=== PATIENT | male | born 1950 | race Hispanic/Latino ===

== ENCOUNTER → 2017-06-15 | Outpatient (CLI) | payer OTHER, MEDICARE ==
[~2017-06-15] MED LIST: METO25TA6 PO; RIVA20TA PO
== END | disposition home or self-care (01) ==
LOC: RAH 10:16
PROVIDERS: ATTEND Physical Medicine & Rehabilitation
DX: M54.12 Radiculopathy, cervical region (principal); M48.02 Spinal stenosis, cervical region
CPT/HCPCS: 72050

== ENCOUNTER → 2017-06-16 | Outpatient (CLI) | payer OTHER, MEDICARE | END | disposition home or self-care (01) | LOC: SHCH 09:54 | PROVIDERS: ATTEND Internal Medicine Cardiovascular Disease | DX: I35.1 Nonrheumatic aortic (valve) insufficiency (principal); I11.0 Hypertensive heart disease with heart failure; I50.9 Heart failure, unspecified; I25.10 Atherosclerotic heart disease of native coronary artery without angina pectoris; I48.0 Paroxysmal atrial fibrillation | CPT/HCPCS: 93306 ==

== ENCOUNTER → 2017-07-28 | Outpatient (CLI) | payer OTHER, MEDICARE | END | disposition home or self-care (01) | LOC: RAH 10:05 | PROVIDERS: ATTEND Physical Medicine & Rehabilitation | DX: M47.896 Other spondylosis, lumbar region (principal) | CPT/HCPCS: 72114 ==

== ENCOUNTER → 2017-09-07 | Outpatient (CLI) | payer MEDICARE, OTHER | END | disposition home or self-care (01) | LOC: RAH 07:54 | PROVIDERS: ATTEND Physical Medicine & Rehabilitation | DX: M50.221 Other cervical disc displacement at C4-C5 level (principal); M48.02 Spinal stenosis, cervical region | CPT/HCPCS: 72141 ==

== ENCOUNTER 2018-07-20 07:28 | Day surgery (SDC) | payer MEDICARE ==
[~2018-07-20] VITALS: Ht 170.2 cm; Wt 83.5 kg
[~2018-07-20 07:28] MED LIST changes: +SODIUM CHLORIDE 0.9% 1000ML 1,000 ML IV ONE
[2018-07-20 09:05] VITALS: BP 130/75
[2018-07-20] MEDS ORDERED: ERGO500014 PO (09:49)
[2018-07-20] MEDS ORDERED: RANI150C4 PO (09:49)
[2018-07-20] MEDS ORDERED: ASPI-555 PO (09:49)
[2018-07-20] MEDS ORDERED: LACT10SO PO (09:49)
[2018-07-20] MEDS ORDERED: TAMS-1 PO (09:49)
[2018-07-20] MEDS ORDERED: TYL3 PO (09:49)
[2018-07-20] MEDS ORDERED: ATOR40TA71 PO (09:49)
[2018-07-20] MEDS ORDERED: PROPOFOL 10 MG/ML 20ML VIAL IV ONE (09:49)
[2018-07-20] MEDS ORDERED: GABA-531 PO (09:49)
[2018-07-20 10:00] VITALS: BP 127/69
[2018-07-20 10:05] VITALS: BP 135/77
[2018-07-20 10:10] VITALS: BP 123/80
== END 2018-07-20 10:35 | disposition home or self-care (01) ==
LOC: ENDO 07:28 → DAH 07:28 → ENDO 10:35
PROVIDERS: ATTEND Internal Medicine
DX: K29.50 Unspecified chronic gastritis without bleeding (principal); K31.9 Disease of stomach and duodenum, unspecified; K74.60 Unspecified cirrhosis of liver; Z68.30 Body mass index [BMI] 30.0-30.9, adult; E78.5 Hyperlipidemia, unspecified; I10 Essential (primary) hypertension; Z86.73 Personal history of transient ischemic attack (TIA), and cerebral infarction without residual deficits; N40.0 Benign prostatic hyperplasia without lower urinary tract symptoms; I48.91 Unspecified atrial fibrillation; Z79.01 Long term (current) use of anticoagulants; Z79.899 Other long term (current) drug therapy
CPT/HCPCS: 43239; 88305; 88342; 93005; A4606; J2704; J7030

== ENCOUNTER 2018-09-29 07:15 | Day surgery (SDC) | payer MEDICARE ==
[~2018-09-29] VITALS: Ht 170.2 cm; Wt 85.7 kg
[~2018-09-29 07:15] MED LIST changes: +ASPI-555 PO; +ATOR40TA71 PO; +ERGO500014 PO; +GABA-531 PO; +LACT10SO PO; +RANI150C4 PO; +TAMS-1 PO; +TYL3 PO
[2018-09-29 08:28] VITALS: BP 166/80
[2018-09-29] MEDS ORDERED: PANT20TA PO (08:36)
[2018-09-29] MEDS ORDERED: DICL2100G TP (08:39)
[2018-09-29] MEDS ORDERED: GUAIFENESIN PO (08:39)
[2018-09-29] MEDS ORDERED: PROPOFOL 10 MG/ML 20ML VIAL IV ONE ×2 (09:07)
[2018-09-29 09:32] VITALS: BP 112/63
[2018-09-29 09:35] VITALS: BP 121/67
[2018-09-29 09:41] VITALS: BP 135/69
[2018-09-29 09:46] VITALS: BP 156/76
== END 2018-09-29 10:05 | disposition home or self-care (01) ==
LOC: ENDO 07:15 → DAH 07:15 → ENDO 10:05
PROVIDERS: ATTEND Internal Medicine Gastroenterology
DX: Z12.11 Encounter for screening for malignant neoplasm of colon (principal); D12.3 Benign neoplasm of transverse colon; K57.30 Diverticulosis of large intestine without perforation or abscess without bleeding; K63.5 Polyp of colon; I10 Essential (primary) hypertension; K29.70 Gastritis, unspecified, without bleeding; K21.9 Gastro-esophageal reflux disease without esophagitis; K74.60 Unspecified cirrhosis of liver; E78.2 Mixed hyperlipidemia; I48.2 Chronic atrial fibrillation; Z86.73 Personal history of transient ischemic attack (TIA), and cerebral infarction without residual deficits; Z79.01 Long term (current) use of anticoagulants; Z79.899 Other long term (current) drug therapy
CPT/HCPCS: 45380; 45385; 88305; 93005; A4606; J2704 ×2; J7030 ×2

== ENCOUNTER → 2018-10-07 | Outpatient (CLI) | payer MEDICARE ==
[~2018-10-07] MED LIST changes: +DICL2100G TP; +GUAIFENESIN PO; -LACT10SO PO; +PANT20TA PO; -SODIUM CHLORIDE 0.9% 1000ML 1,000 ML IV ONE
== END | disposition home or self-care (01) ==
LOC: SLP 20:12
PROVIDERS: ATTEND Internal Medicine Cardiovascular Disease
DX: G47.33 Obstructive sleep apnea (adult) (pediatric) (principal); I10 Essential (primary) hypertension
CPT/HCPCS: 95810

== ENCOUNTER → 2018-11-01 | Outpatient (CLI) | payer MEDICARE | END | disposition home or self-care (01) | LOC: SLP 19:54 | PROVIDERS: ATTEND Internal Medicine Cardiovascular Disease | DX: G47.33 Obstructive sleep apnea (adult) (pediatric) (principal); I10 Essential (primary) hypertension | CPT/HCPCS: 95811 ==

== ENCOUNTER 2019-04-02 17:15 | Emergency (ER) | payer MEDICARE ==
[2019-04-02 17:45] LABS: BASOPHILS % (AUTO) 0.6 % (0.0-5.0); EOSINOPHILS % (AUTO) 0.7 % (0.0-8.0); HEMATOCRIT 44.3 % (42-54); LYMPHOCYTES % (AUTO) 25.5 % (21.0-51.0); MEAN CORPUSCULAR HGB CONC 36.1 g/dL (32.0-36.0); MONOCYTES % (AUTO) 6.2 % (3.0-13.0); NEUTROPHILS % (AUTO) 66.5 % (40.0-77.0); PLATELET COUNT (AUTO) 174 K/uL (130-400); RED BLOOD CELL COUNT(AUTO) 5.34 MIL/uL (4.50-6.20); RED CELL DISTRIBUTION WIDTH 12.6 % (11.0-15.5); WHITE BLOOD COUNT (AUTO) 8.4 K/uL (4.8-10.8)
[2019-04-02 17:56] LABS: INR 0.97 (0.85-1.15); PARTIAL THROMBOPLASTIN TIME 27.2 SEC (26.3-35.5); PROTHROMBIN TIME 10.2 SEC (9.6-11.6)
[2019-04-02 17:59] LABS: CREATININE 0.8 mg/dL (0.5-1.5); POTASSIUM 4.1 mmol/L (3.5-5.1)
[2019-04-02 18:04] LABS: ALBUMIN 3.9 g/dL (3.5-5.0); BILIRUBIN,TOTAL 0.5 mg/dL (0.2-1.0); TOTAL PROTEIN, SERUM 7.5 g/dL (6.0-8.3)
[2019-04-02] MEDS ORDERED: HYDRALAZINE HCL 20 MG/ML VIAL ONE (19:02)
[2019-04-02] MEDS ORDERED: ORPHENADRINE CITRATE 30 MG/ML ML ONE (20:05)
[2019-04-02] MEDS ORDERED: KETOROLAC TROMETHAMINE 30MG/ML ONE (20:05)
== END 2019-04-02 20:27 | disposition home or self-care (01) ==
LOC: EDH 17:15
DX: S56.912A Strain of unspecified muscles, fascia and tendons at forearm level, left arm, initial encounter (principal); M54.2 Cervicalgia; R07.89 Other chest pain; I10 Essential (primary) hypertension; Z87.891 Personal history of nicotine dependence; V59.49XA Driver of pick-up truck or van injured in collision with other motor vehicles in traffic accident, initial encounter; Y93.89 Activity, other specified; Y92.89 Other specified places as the place of occurrence of the external cause; Y99.8 Other external cause status
CPT/HCPCS: 36415; 70450; 71250; 72125; 73090; 74176; 80053; 85025; 85610; 85730; 93005; 96372 ×2; 99285; J1885; J2360; J0360

== ENCOUNTER 2020-02-09 14:13 | Inpatient (IN) | payer MEDICARE ==
[~2020-02-09] VITALS: Ht 170.2 cm; Wt 75.0 kg
[~2020-02-09 14:13] MED LIST changes: -ASPI-555 PO; +ASPI-556 PO
[2020-02-09 15:01] LABS: ABG BASE EXCESS -1.7 mmol/L (-2.0-3.0); ABG HCO3 20.3 mmol/L (21.0-28.0); ABG OXYGEN SATURATION 84.1 % (95.0-99.0); ABG PCO2 28 mmHg (35-48)
[2020-02-09 15:08] LABS: BASOPHILS % (AUTO) 0.2 % (0.0-5.0); HEMATOCRIT 43.2 % (42-54); LYMPHOCYTES % (AUTO) 5.6 % (21.0-51.0); MEAN CORPUSCULAR HEMOGLOBIN 30.3 pg (27.0-33.0); MEAN CORPUSCULAR HGB CONC 36.3 g/dL (32.0-36.0); MEAN CORPUSCULAR VOLUME 83.4 fL (79-99); MONOCYTES % (AUTO) 3.8 % (3.0-13.0); PLATELET COUNT (AUTO) 194 K/uL (130-400); RED BLOOD CELL COUNT(AUTO) 5.18 MIL/uL (4.50-6.20); RED CELL DISTRIBUTION WIDTH 12.3 % (11.0-15.5); WHITE BLOOD COUNT (AUTO) 9.2 K/uL (4.8-10.8)
[2020-02-09 15:24] LABS: CARBON DIOXIDE 25 mmol/L (21-32); CHLORIDE 94 mmol/L (101-111); CREATININE 0.9 mg/dL (0.5-1.5); GLOMERULAR FILTR. RATE CALC 89 mL/min (>60); GLUCOSE,RANDOM 133 mg/dL (70-105); SODIUM SERUM 129 mmol/L (136-145); UREA NITROGEN, BLOOD 18 mg/dL (7-18)
[2020-02-09] MEDS ORDERED: ALBUTEROL INHALER 90MCG/INH IH ONE (15:24)
[2020-02-09] MEDS ORDERED: AZITHROMYCIN 500MG+NS 250ML 250 ML IV ONE (15:25)
[2020-02-09] MEDS ORDERED: DEXAMETHASONE SOD PHOSPHATE 10MG/ML 1ML VIAL ONE (15:25)
[2020-02-09] MEDS ORDERED: CEFTRIAXONE 1G VIAL ONE (15:26)
[2020-02-09] MEDS ORDERED: 0.9%NACL 50ML 50 ML IV ONE (15:29)
[2020-02-09 15:34] LABS: ALANINE AMINOTRANSFERASE 45 U/L (12-78); ASPARTATE AMINOTRANSFERASE 80 U/L (10-37); BILIRUBIN,TOTAL 1.7 mg/dL (0.2-1.0); CREATINE KINASE, TOTAL 145 U/L (21-232); LACTATE DEHYDROGENASE 675 U/L (81-234); MYOGLOBIN 155 ng/mL (10-92); TOTAL PROTEIN, SERUM 7.8 g/dL (6.0-8.3); TROPONIN I < 0.04 ng/mL (0.00-0.06)
[2020-02-09 15:55] LABS: INR 1.03 (0.85-1.15); PARTIAL THROMBOPLASTIN TIME 34.8 SEC (26.3-35.5); PROTHROMBIN TIME 11.1 SEC (9.6-11.6)
[2020-02-09 16:13] LABS: ERYTHROCYTE SEDIMENTATION RATE 51 MM/HR (0-20)
[2020-02-09] MEDS ORDERED: ONDANSETRON 4MG INJ IVP PRN (17:30)
[2020-02-09] MEDS ORDERED: TEMAZEPAM 15 MG CAPSULE PO PRN (17:30)
[2020-02-09] MEDS ORDERED: ALBUTEROL 0.083% 2.5 MG/3 ML INH IH PRN (17:30)
[2020-02-09] MEDS ORDERED: ACETAMINOPHEN 650 MG SUPPOSITORY RC PRN (17:30)
[2020-02-09] MEDS ORDERED: DOCUSATE SODIUM 100 MG CAP PO PRN (17:30)
[2020-02-09] MEDS ORDERED: CLONIDINE HCL 0.1 MG TABLET PO PRN (17:30)
[2020-02-09] MEDS: ASCORBIC ACID 500 MG TAB PO SCH (17:35)
[2020-02-09] MEDS ORDERED: ASPIRIN 81MG CHEW TAB PO SCH (17:45)
[2020-02-09] MEDS ORDERED: IOHEXOL 350 MG/ML 100ML INFUS..BTL IV ONE (18:03)
[2020-02-09 18:44] LABS: APPEARANCE,URINE Clear (CLEAR); BILIRUBIN,URINE Small (NEGATIVE); COLOR,URINE Dark Yellow (YELLOW); GLUCOSE, URINE (UA) Negative (NEGATIVE); KETONES,URINE 15 mg/dL (NEGATIVE); LEUKOCYTE ESTERASE ,URINE Trace (NEGATIVE); NITRATE,URINE Negative (NEGATIVE); OCCULT BLOOD,URINE Negative (NEGATIVE); PH,URINE 5.5 (5.0-8.0); PROTEIN,URINE POS 2+ mg/dL (NEGATIVE)
[2020-02-09 19:11] LABS: RBC,URINE 0-1 /HPF (0-1)
[2020-02-09 19:12] LABS: BACTERIA,URINE Few /HPF (None Seen); SQUAMOUS EPITHELIAL CELL,UR Rare /HPF (0-2)
[2020-02-09] MEDS: FAMOTIDINE 20MG TAB PO SCH (21:00)
[2020-02-09] MEDS: ENOXAPARIN SODIUM 40 MG/0.4 ML SYRINGE SQ SCH (21:00)
[2020-02-09] MEDS: INSULIN HUMULIN R 100 UNIT/ML 3ML SQ SCH (21:00)
[2020-02-09] MEDS ORDERED: ENOXAPARIN SODIUM 40 MG/0.4 ML SYRINGE SQ ONE (22:20)
[2020-02-09] MEDS ORDERED: FAMOTIDINE 20MG TAB ONE (22:20)
[2020-02-09 23:06] VITALS: BP 131/82
[2020-02-10] VITALS (7 sets, daily range): BP systolic 113–156; BP diastolic 53–85
[2020-02-10 05:16] LABS: HEMATOCRIT 41.2 % (42-54); MEAN CORPUSCULAR HEMOGLOBIN 30.7 pg (27.0-33.0); MEAN CORPUSCULAR HGB CONC 36.4 g/dL (32.0-36.0); MEAN CORPUSCULAR VOLUME 84.3 fL (79-99); RED BLOOD CELL COUNT(AUTO) 4.89 MIL/uL (4.50-6.20); RED CELL DISTRIBUTION WIDTH 12.8 % (11.0-15.5); WHITE BLOOD COUNT (AUTO) 5.5 K/uL (4.8-10.8)
[2020-02-10 05:28] LABS: CREATININE 0.9 mg/dL (0.5-1.5); POTASSIUM 4.2 mmol/L (3.5-5.1)
[2020-02-10] MEDS: PHARMACY COMMUNICATION MISC SCH ×4 (06:00→18:00)
[2020-02-10] MEDS: INSULIN HUMULIN R 100 UNIT/ML 3ML SQ SCH ×4 (06:29→21:38)
[2020-02-10] MEDS ORDERED: AZITHROMYCIN 500MG+NS 250ML IV SCH (09:00)
[2020-02-10] MEDS: ASCORBIC ACID 500 MG TAB PO SCH (09:42)
[2020-02-10] MEDS: ASPIRIN 81MG CHEW TAB PO SCH (09:42)
[2020-02-10] MEDS: FOLIC ACID 1 MG TABLET PO SCH (09:42)
[2020-02-10] MEDS: AZITHROMYCIN 500MG+NS 250ML 250 ML IV SCH (09:42)
[2020-02-10] MEDS: FAMOTIDINE 20MG TAB PO SCH ×2 (09:42→20:07)
[2020-02-10] MEDS: CEFTRIAXONE 1G VIAL IVP SCH (09:43)
[2020-02-10] MEDS: ENOXAPARIN SODIUM 40 MG/0.4 ML SYRINGE SQ SCH ×2 (09:43→20:08)
[2020-02-10] MEDS ORDERED: 0.9% NACL 250ML 250 ML IV ONE (12:34)
[2020-02-10 17:28] LABS: BASOPHILS % (AUTO) 0.1 % (0.0-5.0); HEMATOCRIT 37.8 % (42-54); LYMPHOCYTES % (AUTO) 8.7 % (21.0-51.0); MEAN CORPUSCULAR HEMOGLOBIN 30.4 pg (27.0-33.0); MEAN CORPUSCULAR HGB CONC 36.5 g/dL (32.0-36.0); MEAN CORPUSCULAR VOLUME 83.3 fL (79-99); MONOCYTES % (AUTO) 3.5 % (3.0-13.0); NEUTROPHILS % (AUTO) 87.1 % (40.0-77.0); PLATELET COUNT (AUTO) 197 K/uL (130-400); RED BLOOD CELL COUNT(AUTO) 4.54 MIL/uL (4.50-6.20); RED CELL DISTRIBUTION WIDTH 12.7 % (11.0-15.5); WHITE BLOOD COUNT (AUTO) 7.2 K/uL (4.8-10.8)
[2020-02-10 17:39] LABS: CREATININE 0.9 mg/dL (0.5-1.5)
[2020-02-11 03:50] VITALS: BP 118/60
[2020-02-11] MEDS: PHARMACY COMMUNICATION MISC SCH ×4 (06:00→18:00)
[2020-02-11] MEDS: INSULIN HUMULIN R 100 UNIT/ML 3ML SQ SCH ×5 (06:33→21:00)
[2020-02-11 08:00] VITALS: BP 117/57
[2020-02-11] MEDS: FAMOTIDINE 20MG TAB PO SCH ×2 (08:59→21:02)
[2020-02-11] MEDS: AZITHROMYCIN 500MG+NS 250ML 250 ML IV SCH (08:59)
[2020-02-11] MEDS: FOLIC ACID 1 MG TABLET PO SCH (08:59)
[2020-02-11] MEDS: ASCORBIC ACID 500 MG TAB PO SCH (08:59)
[2020-02-11] MEDS: CEFTRIAXONE 1G VIAL IVP SCH (08:59)
[2020-02-11] MEDS: ASPIRIN 81MG CHEW TAB PO SCH (08:59)
[2020-02-11] MEDS: DEXAMETHASONE SOD PHOSPHATE 4 MG/ML 1ML VIAL IVP SCH (08:59)
[2020-02-11] MEDS: ENOXAPARIN SODIUM 40 MG/0.4 ML SYRINGE SQ SCH ×2 (09:00→21:03)
[2020-02-11 12:00] VITALS: BP 146/79
[2020-02-11 16:00] VITALS: BP 120/68
[2020-02-11 20:46] VITALS: BP 127/66
[2020-02-12 00:05] VITALS: BP 123/59
[2020-02-12 04:04] VITALS: BP 112/65
[2020-02-12 05:26] LABS: MEAN CORPUSCULAR HGB CONC 35.5 g/dL (32.0-36.0); MEAN CORPUSCULAR VOLUME 84.6 fL (79-99); RED BLOOD CELL COUNT(AUTO) 4.73 MIL/uL (4.50-6.20); RED CELL DISTRIBUTION WIDTH 12.5 % (11.0-15.5); WHITE BLOOD COUNT (AUTO) 8.4 K/uL (4.8-10.8)
[2020-02-12 05:44] LABS: CREATININE 0.8 mg/dL (0.5-1.5); POTASSIUM 4.1 mmol/L (3.5-5.1)
[2020-02-12] MEDS: INSULIN HUMULIN R 100 UNIT/ML 3ML SQ SCH ×4 (05:50→20:59)
[2020-02-12] MEDS: PHARMACY COMMUNICATION MISC SCH ×5 (06:00→23:22)
[2020-02-12 07:32] LABS: ABG BASE EXCESS 2.9 mmol/L (-2.0-3.0); ABG HCO3 26.5 mmol/L (21.0-28.0); ABG OXYGEN SATURATION 93.7 % (95.0-99.0); ABG PCO2 37 mmHg (35-48)
[2020-02-12 08:00] VITALS: BP 114/62
[2020-02-12] MEDS: ASCORBIC ACID 500 MG TAB PO SCH (10:28)
[2020-02-12] MEDS: FOLIC ACID 1 MG TABLET PO SCH (10:28)
[2020-02-12] MEDS: AZITHROMYCIN 500MG+NS 250ML 250 ML IV SCH (10:28)
[2020-02-12] MEDS: FAMOTIDINE 20MG TAB PO SCH ×2 (10:28→20:52)
[2020-02-12] MEDS: DEXAMETHASONE SOD PHOSPHATE 4 MG/ML 1ML VIAL IVP SCH (10:28)
[2020-02-12] MEDS: ASPIRIN 81MG CHEW TAB PO SCH (10:28)
[2020-02-12] MEDS: CEFTRIAXONE 1G VIAL IVP SCH (10:29)
[2020-02-12 12:20] VITALS: BP 124/64
[2020-02-12] MEDS: ENOXAPARIN SODIUM 40 MG/0.4 ML SYRINGE SQ SCH ×2 (12:30→20:53)
[2020-02-12 16:10] VITALS: BP 115/65
[2020-02-12 20:53] VITALS: BP 137/79
[2020-02-13] VITALS (8 sets, daily range): BP systolic 116–147; BP diastolic 66–72
[2020-02-13 04:34] LABS: HEMATOCRIT 39.4 % (42-54); MEAN CORPUSCULAR HEMOGLOBIN 29.9 pg (27.0-33.0); MEAN CORPUSCULAR HGB CONC 35.8 g/dL (32.0-36.0); MEAN CORPUSCULAR VOLUME 83.7 fL (79-99); RED BLOOD CELL COUNT(AUTO) 4.71 MIL/uL (4.50-6.20); RED CELL DISTRIBUTION WIDTH 12.4 % (11.0-15.5); WHITE BLOOD COUNT (AUTO) 8.9 K/uL (4.8-10.8)
[2020-02-13 05:13] LABS: ALBUMIN 2.3 g/dL (3.5-5.0); BILIRUBIN,DIRECT 0.2 mg/dL (0.0-0.3); CREATININE 0.7 mg/dL (0.5-1.5); TOTAL PROTEIN, SERUM 6.4 g/dL (6.0-8.3)
[2020-02-13] MEDS: PHARMACY COMMUNICATION MISC SCH ×2 (05:19→12:00)
[2020-02-13] MEDS: INSULIN HUMULIN R 100 UNIT/ML 3ML SQ SCH ×5 (06:33→21:06)
[2020-02-13] MEDS: CEFTRIAXONE 1G VIAL IVP SCH (08:57)
[2020-02-13] MEDS: AZITHROMYCIN 500MG+NS 250ML 250 ML IV SCH (08:57)
[2020-02-13] MEDS: ASCORBIC ACID 500 MG TAB PO SCH (08:58)
[2020-02-13] MEDS: DEXAMETHASONE SOD PHOSPHATE 4 MG/ML 1ML VIAL IVP SCH (08:58)
[2020-02-13] MEDS: ASPIRIN 81MG CHEW TAB PO SCH (08:58)
[2020-02-13] MEDS: FOLIC ACID 1 MG TABLET PO SCH (08:58)
[2020-02-13] MEDS: FAMOTIDINE 20MG TAB PO SCH ×2 (08:58→21:02)
[2020-02-13] MEDS: ENOXAPARIN SODIUM 40 MG/0.4 ML SYRINGE SQ SCH ×2 (08:59→21:04)
[2020-02-13] MEDS ORDERED: COMPOUND IV REFRIGERATED 1 EACH IVSOLN MISC PRN (15:00)
[2020-02-13] MEDS ORDERED: REMDESIVIR (EUA) 520 200 MG in 0.9% NACL 250ML 250 ML IV ONE (15:00)
[2020-02-14 03:09] VITALS: BP 127/63
[2020-02-14 04:44] LABS: ABG BASE EXCESS 1.7 mmol/L (-2.0-3.0); ABG HCO3 23.1 mmol/L (21.0-28.0); ABG OXYGEN SATURATION 90.9 % (95.0-99.0); ABG PCO2 28 mmHg (35-48)
[2020-02-14] MEDS: INSULIN HUMULIN R 100 UNIT/ML 3ML SQ SCH ×4 (05:34→21:00)
[2020-02-14] MEDS: PHARMACY COMMUNICATION MISC SCH (05:37)
[2020-02-14 06:01] LABS: BASOPHILS % (AUTO) 0.2 % (0.0-5.0); EOSINOPHILS % (AUTO) 0.4 % (0.0-8.0); HEMATOCRIT 40.9 % (42-54); LYMPHOCYTES % (AUTO) 7.3 % (21.0-51.0); MEAN CORPUSCULAR HEMOGLOBIN 30.4 pg (27.0-33.0); MEAN CORPUSCULAR HGB CONC 36.2 g/dL (32.0-36.0); MONOCYTES % (AUTO) 1.7 % (3.0-13.0); NEUTROPHILS % (AUTO) 88.9 % (40.0-77.0); PLATELET COUNT (AUTO) 301 K/uL (130-400); RED BLOOD CELL COUNT(AUTO) 4.87 MIL/uL (4.50-6.20); RED CELL DISTRIBUTION WIDTH 12.6 % (11.0-15.5); WHITE BLOOD COUNT (AUTO) 11.2 K/uL (4.8-10.8)
[2020-02-14 06:10] LABS: CREATININE 0.8 mg/dL (0.5-1.5); CRP QUANTITATIVE 129.7 mg/L (0.00-9.0); POTASSIUM 4.1 mmol/L (3.5-5.1)
[2020-02-14 08:00] VITALS: BP 144/60
[2020-02-14] MEDS: ASPIRIN 81MG CHEW TAB PO SCH (08:08)
[2020-02-14] MEDS: ZINC SULFATE 220 CAPSULE PO SCH (08:08)
[2020-02-14] MEDS: AZITHROMYCIN 500MG+NS 250ML 250 ML IV SCH (08:08)
[2020-02-14] MEDS: FOLIC ACID 1 MG TABLET PO SCH (08:08)
[2020-02-14] MEDS: DEXAMETHASONE SOD PHOSPHATE 4 MG/ML 1ML VIAL IVP SCH (08:09)
[2020-02-14] MEDS: FAMOTIDINE 20MG TAB PO SCH ×2 (08:09→20:10)
[2020-02-14] MEDS: ENOXAPARIN SODIUM 40 MG/0.4 ML SYRINGE SQ SCH ×2 (08:09→20:11)
[2020-02-14] MEDS: ASCORBIC ACID 500 MG TAB PO SCH (08:09)
[2020-02-14] MEDS: CEFTRIAXONE 1G VIAL IVP SCH (08:09)
[2020-02-14 12:55] VITALS: BP 107/54
[2020-02-14 13:43] LABS: ALBUMIN 2.4 g/dL (3.5-5.0); BILIRUBIN,DIRECT 0.3 mg/dL (0.0-0.3); BILIRUBIN,TOTAL 0.9 mg/dL (0.2-1.0); TOTAL PROTEIN, SERUM 6.8 g/dL (6.0-8.3)
[2020-02-14] MEDS: REMDESIVIR (EUA) 520 100 MG in 0.9% NACL 250ML 250 ML IV SCH (15:30)
[2020-02-14 16:40] VITALS: BP 138/56
[2020-02-14 20:37] VITALS: BP 106/59
[2020-02-15] VITALS (7 sets, daily range): BP systolic 112–150; BP diastolic 57–83
[2020-02-15 04:47] LABS: ABG BASE EXCESS 0.6 mmol/L (-2.0-3.0); ABG OXYGEN SATURATION 90.6 % (95.0-99.0); ABG PCO2 35 mmHg (35-48)
[2020-02-15 05:21] LABS: BASOPHILS % (AUTO) 0.1 % (0.0-5.0); EOSINOPHILS % (AUTO) 0.4 % (0.0-8.0); LYMPHOCYTES % (AUTO) 6.7 % (21.0-51.0); MEAN CORPUSCULAR HEMOGLOBIN 30.5 pg (27.0-33.0); MEAN CORPUSCULAR HGB CONC 35.9 g/dL (32.0-36.0); MONOCYTES % (AUTO) 1.7 % (3.0-13.0); NEUTROPHILS % (AUTO) 89.7 % (40.0-77.0); PLATELET COUNT (AUTO) 329 K/uL (130-400); RED BLOOD CELL COUNT(AUTO) 4.59 MIL/uL (4.50-6.20); RED CELL DISTRIBUTION WIDTH 12.7 % (11.0-15.5); WHITE BLOOD COUNT (AUTO) 11.4 K/uL (4.8-10.8)
[2020-02-15] MEDS: INSULIN HUMULIN R 100 UNIT/ML 3ML SQ SCH ×4 (05:27→20:39)
[2020-02-15 06:01] LABS: ALBUMIN 2.2 g/dL (3.5-5.0); BILIRUBIN,TOTAL 0.7 mg/dL (0.2-1.0); CREATININE 0.7 mg/dL (0.5-1.5); MAGNESIUM 2.1 mg/dL (1.80-2.40); POTASSIUM 4.2 mmol/L (3.5-5.1); TOTAL PROTEIN, SERUM 6.3 g/dL (6.0-8.3)
[2020-02-15] MEDS: ZINC SULFATE 220 CAPSULE PO SCH (08:49)
[2020-02-15] MEDS: AZITHROMYCIN 500MG+NS 250ML 250 ML IV SCH (08:49)
[2020-02-15] MEDS: DEXAMETHASONE SOD PHOSPHATE 4 MG/ML 1ML VIAL IVP SCH (08:49)
[2020-02-15] MEDS: ASPIRIN 81MG CHEW TAB PO SCH (08:50)
[2020-02-15] MEDS: CEFTRIAXONE 1G VIAL IVP SCH (08:50)
[2020-02-15] MEDS: FOLIC ACID 1 MG TABLET PO SCH (08:50)
[2020-02-15] MEDS: ASCORBIC ACID 500 MG TAB PO SCH (08:50)
[2020-02-15] MEDS: FAMOTIDINE 20MG TAB PO SCH ×2 (08:50→20:29)
[2020-02-15] MEDS: ENOXAPARIN SODIUM 40 MG/0.4 ML SYRINGE SQ SCH ×2 (08:51→20:30)
[2020-02-15] MEDS: PHARMACY COMMUNICATION MISC SCH (13:12)
[2020-02-15] MEDS: REMDESIVIR (EUA) 520 100 MG in 0.9% NACL 250ML 250 ML IV SCH (15:15)
[2020-02-16] VITALS (7 sets, daily range): BP systolic 111–127; BP diastolic 58–69
[2020-02-16 04:44] LABS: BASOPHILS % (AUTO) 0.1 % (0.0-5.0); EOSINOPHILS % (AUTO) 0.1 % (0.0-8.0); HEMATOCRIT 40.8 % (42-54); LYMPHOCYTES % (AUTO) 7.1 % (21.0-51.0); MEAN CORPUSCULAR HEMOGLOBIN 30.2 pg (27.0-33.0); MEAN CORPUSCULAR HGB CONC 35.8 g/dL (32.0-36.0); MEAN CORPUSCULAR VOLUME 84.3 fL (79-99); MONOCYTES % (AUTO) 1.9 % (3.0-13.0); NEUTROPHILS % (AUTO) 88.8 % (40.0-77.0); PLATELET COUNT (AUTO) 388 K/uL (130-400); RED BLOOD CELL COUNT(AUTO) 4.84 MIL/uL (4.50-6.20); RED CELL DISTRIBUTION WIDTH 12.7 % (11.0-15.5)
[2020-02-16 05:15] LABS: ALBUMIN 2.1 g/dL (3.5-5.0); BILIRUBIN,TOTAL 0.8 mg/dL (0.2-1.0); CREATININE 0.7 mg/dL (0.5-1.5); MAGNESIUM 2.1 mg/dL (1.80-2.40); PHOSPHORUS 4.5 mg/dL (2.5-4.9); POTASSIUM 4.4 mmol/L (3.5-5.1); TOTAL PROTEIN, SERUM 6.5 g/dL (6.0-8.3)
[2020-02-16] MEDS: INSULIN HUMULIN R 100 UNIT/ML 3ML SQ SCH ×4 (07:30→21:24)
[2020-02-16] MEDS: PHARMACY COMMUNICATION MISC SCH (08:04)
[2020-02-16] MEDS: ASPIRIN 81MG CHEW TAB PO SCH (08:56)
[2020-02-16] MEDS: CEFTRIAXONE 1G VIAL IVP SCH (08:57)
[2020-02-16] MEDS: FAMOTIDINE 20MG TAB PO SCH ×2 (08:58→21:18)
[2020-02-16] MEDS: FOLIC ACID 1 MG TABLET PO SCH (08:58)
[2020-02-16] MEDS: ENOXAPARIN SODIUM 40 MG/0.4 ML SYRINGE SQ SCH ×2 (08:59→21:18)
[2020-02-16] MEDS: AZITHROMYCIN 500MG+NS 250ML 250 ML IV SCH (08:59)
[2020-02-16] MEDS: ZINC SULFATE 220 CAPSULE PO SCH (08:59)
[2020-02-16] MEDS: ASCORBIC ACID 500 MG TAB PO SCH (08:59)
[2020-02-16] MEDS: DEXAMETHASONE SOD PHOSPHATE 4 MG/ML 1ML VIAL IVP SCH (09:00)
[2020-02-16] MEDS: REMDESIVIR (EUA) 520 100 MG in 0.9% NACL 250ML 250 ML IV SCH (15:08)
[2020-02-17 03:00] VITALS: BP 108/56
[2020-02-17 06:02] LABS: BASOPHILS % (AUTO) 0.2 % (0.0-5.0); EOSINOPHILS % (AUTO) 0.3 % (0.0-8.0); HEMATOCRIT 43.2 % (42-54); LYMPHOCYTES % (AUTO) 7.6 % (21.0-51.0); MEAN CORPUSCULAR HEMOGLOBIN 30.7 pg (27.0-33.0); MEAN CORPUSCULAR HGB CONC 36.3 g/dL (32.0-36.0); MEAN CORPUSCULAR VOLUME 84.4 fL (79-99); MONOCYTES % (AUTO) 1.6 % (3.0-13.0); NEUTROPHILS % (AUTO) 87.9 % (40.0-77.0); PLATELET COUNT (AUTO) 439 K/uL (130-400); RED BLOOD CELL COUNT(AUTO) 5.12 MIL/uL (4.50-6.20); RED CELL DISTRIBUTION WIDTH 12.7 % (11.0-15.5); WHITE BLOOD COUNT (AUTO) 14.3 K/uL (4.8-10.8)
[2020-02-17 06:41] LABS: ALBUMIN 2.3 g/dL (3.5-5.0); BILIRUBIN,DIRECT 0.3 mg/dL (0.0-0.3); BILIRUBIN,TOTAL 0.8 mg/dL (0.2-1.0); CREATININE 0.7 mg/dL (0.5-1.5); MAGNESIUM 1.9 mg/dL (1.80-2.40); PHOSPHORUS 4.2 mg/dL (2.5-4.9); POTASSIUM 3.9 mmol/L (3.5-5.1); TOTAL PROTEIN, SERUM 6.6 g/dL (6.0-8.3)
[2020-02-17] MEDS: INSULIN HUMULIN R 100 UNIT/ML 3ML SQ SCH ×4 (07:08→20:03)
[2020-02-17 08:06] VITALS: BP 133/70
[2020-02-17] MEDS: CEFTRIAXONE 1G VIAL IVP SCH (08:19)
[2020-02-17] MEDS: AZITHROMYCIN 500MG+NS 250ML 250 ML IV SCH (08:19)
[2020-02-17] MEDS: FOLIC ACID 1 MG TABLET PO SCH (08:21)
[2020-02-17] MEDS: DEXAMETHASONE SOD PHOSPHATE 4 MG/ML 1ML VIAL IVP SCH (08:21)
[2020-02-17] MEDS: FAMOTIDINE 20MG TAB PO SCH ×2 (08:22→20:01)
[2020-02-17] MEDS: ZINC SULFATE 220 CAPSULE PO SCH (08:22)
[2020-02-17] MEDS: ASCORBIC ACID 500 MG TAB PO SCH (08:22)
[2020-02-17] MEDS: ASPIRIN 81MG CHEW TAB PO SCH (08:22)
[2020-02-17] MEDS: ENOXAPARIN SODIUM 40 MG/0.4 ML SYRINGE SQ SCH ×2 (08:22→20:02)
[2020-02-17] MEDS: PHARMACY COMMUNICATION MISC SCH (08:23)
[2020-02-17 12:53] VITALS: BP 124/58
[2020-02-17] MEDS: REMDESIVIR (EUA) 520 100 MG in 0.9% NACL 250ML 250 ML IV SCH (15:27)
[2020-02-17 16:30] VITALS: BP 126/63
[2020-02-17 19:30] VITALS: BP 117/57
[2020-02-17 23:25] VITALS: BP 106/58
[2020-02-18 03:41] LABS: ABG BASE EXCESS 0.8 mmol/L (-2.0-3.0); ABG HCO3 24.1 mmol/L (21.0-28.0); ABG OXYGEN SATURATION 89.5 % (95.0-99.0); ABG PCO2 35 mmHg (35-48)
[2020-02-18 04:06] VITALS: BP 115/55
[2020-02-18] MEDS: PHARMACY COMMUNICATION MISC SCH (05:04)
[2020-02-18 05:44] LABS: BASOPHILS % (AUTO) 0.2 % (0.0-5.0); EOSINOPHILS % (AUTO) 0.1 % (0.0-8.0); HEMATOCRIT 42.2 % (42-54); MEAN CORPUSCULAR HEMOGLOBIN 30.1 pg (27.0-33.0); MEAN CORPUSCULAR HGB CONC 35.8 g/dL (32.0-36.0); MEAN CORPUSCULAR VOLUME 84.2 fL (79-99); MONOCYTES % (AUTO) 1.5 % (3.0-13.0); NEUTROPHILS % (AUTO) 91.2 % (40.0-77.0); PLATELET COUNT (AUTO) 408 K/uL (130-400); RED BLOOD CELL COUNT(AUTO) 5.01 MIL/uL (4.50-6.20); WHITE BLOOD COUNT (AUTO) 14.5 K/uL (4.8-10.8)
[2020-02-18 06:31] LABS: ALBUMIN 2.2 g/dL (3.5-5.0); BILIRUBIN,TOTAL 0.7 mg/dL (0.2-1.0); CREATININE 0.7 mg/dL (0.5-1.5); PHOSPHORUS 4.1 mg/dL (2.5-4.9); POTASSIUM 4.3 mmol/L (3.5-5.1); TOTAL PROTEIN, SERUM 6.8 g/dL (6.0-8.3)
[2020-02-18] MEDS: INSULIN HUMULIN R 100 UNIT/ML 3ML SQ SCH ×4 (06:33→20:39)
[2020-02-18 08:00] VITALS: BP 127/70
[2020-02-18] MEDS: FAMOTIDINE 20MG TAB PO SCH ×2 (08:00→20:27)
[2020-02-18] MEDS: FOLIC ACID 1 MG TABLET PO SCH (08:00)
[2020-02-18] MEDS: ASPIRIN 81MG CHEW TAB PO SCH (08:00)
[2020-02-18] MEDS: ASCORBIC ACID 500 MG TAB PO SCH (08:00)
[2020-02-18] MEDS: ENOXAPARIN SODIUM 40 MG/0.4 ML SYRINGE SQ SCH ×2 (08:01→20:27)
[2020-02-18] MEDS: ZINC SULFATE 220 CAPSULE PO SCH (08:01)
[2020-02-18] MEDS: AZITHROMYCIN 500MG+NS 250ML 250 ML IV SCH (08:01)
[2020-02-18] MEDS: DEXAMETHASONE SOD PHOSPHATE 4 MG/ML 1ML VIAL IVP SCH (08:01)
[2020-02-18] MEDS: CEFTRIAXONE 1G VIAL IVP SCH (08:02)
[2020-02-18 11:19] VITALS: BP 125/74
[2020-02-18 15:16] VITALS: BP_SYST 109; BP_SYST 114; BP_DIAS 54; BP_DIAS 55
[2020-02-18 19:00] VITALS: BP 114/62
[2020-02-18 23:00] VITALS: BP 113/48
[2020-02-19 03:00] VITALS: BP 105/58
[2020-02-19] MEDS: INSULIN HUMULIN R 100 UNIT/ML 3ML SQ SCH ×4 (06:12→21:20)
[2020-02-19] MEDS: FOLIC ACID 1 MG TABLET PO SCH (07:58)
[2020-02-19] MEDS: ASCORBIC ACID 500 MG TAB PO SCH (07:58)
[2020-02-19] MEDS: ASPIRIN 81MG CHEW TAB PO SCH (07:58)
[2020-02-19] MEDS: FAMOTIDINE 20MG TAB PO SCH ×2 (07:58→20:56)
[2020-02-19] MEDS: ZINC SULFATE 220 CAPSULE PO SCH (07:58)
[2020-02-19] MEDS: ENOXAPARIN SODIUM 40 MG/0.4 ML SYRINGE SQ SCH ×2 (07:59→20:56)
[2020-02-19 08:00] VITALS: BP 113/89
[2020-02-19 12:00] VITALS: BP 140/61
[2020-02-19] MEDS ORDERED: LABETALOL 20MG SYG IV SCH (12:45)
[2020-02-19] MEDS ORDERED: IPRATROPIUM 0.5 MG/2.5 ML INH IH PRN (14:30)
[2020-02-19 16:00] VITALS: BP 115/62
[2020-02-19] MEDS ORDERED: FUROSEMIDE 40MG VIAL IV SCH (18:00)
[2020-02-19 19:03] LABS: ABG BASE EXCESS 2.4 mmol/L (-2.0-3.0); ABG HCO3 25.3 mmol/L (21.0-28.0); ABG OXYGEN SATURATION 92.2 % (95.0-99.0); ABG PCO2 34 mmHg (35-48)
[2020-02-19 19:33] VITALS: BP 127/75
[2020-02-19] MEDS: ACETAMINOPHEN 325 MG TAB PO PRN (20:58)
[2020-02-19 23:38] VITALS: BP 89/60
[2020-02-20 03:27] VITALS: BP 113/74
[2020-02-20 04:14] LABS: ABG BASE EXCESS 2.4 mmol/L (-2.0-3.0); ABG HCO3 25.3 mmol/L (21.0-28.0); ABG OXYGEN SATURATION 89.7 % (95.0-99.0); ABG PCO2 34 mmHg (35-48)
[2020-02-20 04:39] LABS: BASOPHILS % (AUTO) 0.2 % (0.0-5.0); EOSINOPHILS % (AUTO) 0.2 % (0.0-8.0); HEMATOCRIT 42.7 % (42-54); LYMPHOCYTES % (AUTO) 3.8 % (21.0-51.0); MEAN CORPUSCULAR HEMOGLOBIN 30.8 pg (27.0-33.0); MEAN CORPUSCULAR HGB CONC 36.5 g/dL (32.0-36.0); MEAN CORPUSCULAR VOLUME 84.2 fL (79-99); NEUTROPHILS % (AUTO) 93.8 % (40.0-77.0); PLATELET COUNT (AUTO) 359 K/uL (130-400); RED BLOOD CELL COUNT(AUTO) 5.07 MIL/uL (4.50-6.20); RED CELL DISTRIBUTION WIDTH 13.1 % (11.0-15.5); WHITE BLOOD COUNT (AUTO) 24.8 K/uL (4.8-10.8)
[2020-02-20 05:03] LABS: BILIRUBIN,TOTAL 1.4 mg/dL (0.2-1.0); MAGNESIUM 1.8 mg/dL (1.80-2.40); PHOSPHORUS 4.6 mg/dL (2.5-4.9); POTASSIUM 4.1 mmol/L (3.5-5.1)
[2020-02-20] MEDS: INSULIN HUMULIN R 100 UNIT/ML 3ML SQ SCH ×4 (07:01→20:46)
[2020-02-20 08:00] VITALS: BP 102/64
[2020-02-20] MEDS: ASCORBIC ACID 500 MG TAB PO SCH (09:36)
[2020-02-20] MEDS: ASPIRIN 81MG CHEW TAB PO SCH (09:36)
[2020-02-20] MEDS: ENOXAPARIN SODIUM 40 MG/0.4 ML SYRINGE SQ SCH ×2 (09:36→20:41)
[2020-02-20] MEDS: ZINC SULFATE 220 CAPSULE PO SCH (09:37)
[2020-02-20] MEDS: FOLIC ACID 1 MG TABLET PO SCH (09:37)
[2020-02-20] MEDS: FAMOTIDINE 20MG TAB PO SCH ×2 (09:37→20:41)
[2020-02-20 11:21] LABS: ABG BASE EXCESS 2.1 mmol/L (-2.0-3.0); ABG HCO3 24.7 mmol/L (21.0-28.0); ABG OXYGEN SATURATION 90.1 % (95.0-99.0); ABG PCO2 33 mmHg (35-48)
[2020-02-20 12:17] VITALS: BP 131/76
[2020-02-20] MEDS: FUROSEMIDE 40MG VIAL IV SCH (15:59)
[2020-02-20 16:00] VITALS: BP_SYST 112; BP_SYST 119; BP_DIAS 69; BP_DIAS 74
[2020-02-20 16:52] LABS: ABG BASE EXCESS 1.7 mmol/L (-2.0-3.0); ABG HCO3 24.7 mmol/L (21.0-28.0); ABG OXYGEN SATURATION 91.6 % (95.0-99.0); ABG PCO2 34 mmHg (35-48)
[2020-02-20] MEDS ORDERED: DEXAMETHASONE SOD PHOSPHATE 4 MG/ML 1ML VIAL IVP SCH (17:30)
[2020-02-20 19:59] VITALS: BP 112/74
[2020-02-20] MEDS: ACETAMINOPHEN 325 MG TAB PO PRN (20:54)
[2020-02-20 23:59] VITALS: BP 112/75
[2020-02-21] MEDS: FUROSEMIDE 40MG VIAL IV SCH ×2 (03:31→16:05)
[2020-02-21 03:46] VITALS: BP 111/73
[2020-02-21 04:30] LABS: BASOPHILS % (AUTO) 0.1 % (0.0-5.0); HEMATOCRIT 43.8 % (42-54); LYMPHOCYTES % (AUTO) 2.9 % (21.0-51.0); MEAN CORPUSCULAR HEMOGLOBIN 30.1 pg (27.0-33.0); MEAN CORPUSCULAR HGB CONC 35.4 g/dL (32.0-36.0); MONOCYTES % (AUTO) 0.7 % (3.0-13.0); NEUTROPHILS % (AUTO) 95.2 % (40.0-77.0); PLATELET COUNT (AUTO) 333 K/uL (130-400); RED BLOOD CELL COUNT(AUTO) 5.15 MIL/uL (4.50-6.20); RED CELL DISTRIBUTION WIDTH 13.1 % (11.0-15.5)
[2020-02-21 04:44] LABS: ALBUMIN 1.8 g/dL (3.5-5.0); BILIRUBIN,TOTAL 1.2 mg/dL (0.2-1.0); CREATININE 1.1 mg/dL (0.5-1.5); MAGNESIUM 2.6 mg/dL (1.80-2.40); PHOSPHORUS 5.7 mg/dL (2.5-4.9); POTASSIUM 3.8 mmol/L (3.5-5.1); TOTAL PROTEIN, SERUM 7.5 g/dL (6.0-8.3)
[2020-02-21 04:49] LABS: B-TYPE NATRIURETIC PEPTIDE 100 pg/mL (0-100)
[2020-02-21 05:17] LABS: CRP QUANTITATIVE 502.2 mg/L (0.00-9.0)
[2020-02-21] MEDS: INSULIN HUMULIN R 100 UNIT/ML 3ML SQ SCH ×4 (06:50→21:15)
[2020-02-21 08:00] VITALS: BP 114/73
[2020-02-21] MEDS: DEXAMETHASONE SOD PHOSPHATE 4 MG/ML 1ML VIAL IVP SCH (09:07)
[2020-02-21] MEDS: ENOXAPARIN SODIUM 40 MG/0.4 ML SYRINGE SQ SCH ×2 (09:08→21:12)
[2020-02-21] MEDS: FAMOTIDINE 20MG TAB PO SCH ×2 (09:27→21:12)
[2020-02-21] MEDS: ASCORBIC ACID 500 MG TAB PO SCH (09:27)
[2020-02-21] MEDS: ASPIRIN 81MG CHEW TAB PO SCH (09:28)
[2020-02-21] MEDS: FOLIC ACID 1 MG TABLET PO SCH (09:28)
[2020-02-21] MEDS: ZINC SULFATE 220 CAPSULE PO SCH (09:28)
[2020-02-21 10:48] LABS: APPEARANCE,URINE TURBID (CLEAR); BILIRUBIN,URINE SMALL (NEGATIVE); COLOR,URINE YELLOW (YELLOW); GLUCOSE, URINE (UA) NEGATIVE (NEGATIVE); KETONES,URINE NEGATIVE (NEGATIVE); LEUKOCYTE ESTERASE ,URINE NEGATIVE (NEGATIVE); NITRATE,URINE NEGATIVE (NEGATIVE); OCCULT BLOOD,URINE LARGE (NEGATIVE); PROTEIN,URINE TRACE mg/dL (NEGATIVE); UROBILINOGEN,URINE 0.2 mg/dL (0.2-1.0)
[2020-02-21 11:05] LABS: WBC,URINE 0-1 /HPF (0-1)
[2020-02-21 11:06] LABS: AMORPHOUS SEDIMENT,UR Many /LPF (None Seen); BACTERIA,URINE Few /HPF (None Seen); SQUAMOUS EPITHELIAL CELL,UR Rare /HPF (0-2)
[2020-02-21 12:13] VITALS: BP 114/83
[2020-02-21 16:35] VITALS: BP 124/91
[2020-02-21 17:34] LABS: INR 1.14 (0.85-1.15); PROTHROMBIN TIME 12.3 SEC (9.6-11.6)
[2020-02-21 20:48] VITALS: BP 132/72
[2020-02-21] MEDS: ACETAMINOPHEN 325 MG TAB PO PRN (21:13)
[2020-02-22] VITALS (7 sets, daily range): BP systolic 116–143; BP diastolic 67–86
[2020-02-22 05:04] LABS: BASOPHILS % (AUTO) 0.1 % (0.0-5.0); HEMATOCRIT 44.3 % (42-54); LYMPHOCYTES % (AUTO) 2.6 % (21.0-51.0); MEAN CORPUSCULAR HEMOGLOBIN 30.3 pg (27.0-33.0); MEAN CORPUSCULAR HGB CONC 35.7 g/dL (32.0-36.0); MONOCYTES % (AUTO) 1.5 % (3.0-13.0); NEUTROPHILS % (AUTO) 94.9 % (40.0-77.0); PLATELET COUNT (AUTO) 320 K/uL (130-400); RED BLOOD CELL COUNT(AUTO) 5.21 MIL/uL (4.50-6.20); RED CELL DISTRIBUTION WIDTH 13.2 % (11.0-15.5); WHITE BLOOD COUNT (AUTO) 27.8 K/uL (4.8-10.8)
[2020-02-22 05:24] LABS: POTASSIUM 4.4 mmol/L (3.5-5.1)
[2020-02-22] MEDS: FUROSEMIDE 40MG VIAL IV SCH (06:20)
[2020-02-22] MEDS: INSULIN HUMULIN R 100 UNIT/ML 3ML SQ SCH ×4 (06:29→21:42)
[2020-02-22] MEDS: FOLIC ACID 1 MG TABLET PO SCH (09:10)
[2020-02-22] MEDS: DEXAMETHASONE SOD PHOSPHATE 4 MG/ML 1ML VIAL IVP SCH (09:10)
[2020-02-22] MEDS: ZINC SULFATE 220 CAPSULE PO SCH (09:10)
[2020-02-22] MEDS: FAMOTIDINE 20MG TAB PO SCH ×2 (09:10→21:12)
[2020-02-22] MEDS: ASPIRIN 81MG CHEW TAB PO SCH (09:10)
[2020-02-22] MEDS: ASCORBIC ACID 500 MG TAB PO SCH (09:10)
[2020-02-22] MEDS: ENOXAPARIN SODIUM 40 MG/0.4 ML SYRINGE SQ SCH ×2 (09:11→21:12)
[2020-02-22] MEDS: PHARMACY COMMUNICATION MISC SCH ×2 (14:45→22:45)
[2020-02-23 04:00] VITALS: BP 137/84
[2020-02-23 04:55] LABS: HEMATOCRIT 42.4 % (42-54); MEAN CORPUSCULAR HEMOGLOBIN 30.1 pg (27.0-33.0); MEAN CORPUSCULAR HGB CONC 35.4 g/dL (32.0-36.0); MEAN CORPUSCULAR VOLUME 85.1 fL (79-99); PLATELET COUNT (AUTO) 284 K/uL (130-400); RED BLOOD CELL COUNT(AUTO) 4.98 MIL/uL (4.50-6.20); RED CELL DISTRIBUTION WIDTH 13.2 % (11.0-15.5); WHITE BLOOD COUNT (AUTO) 23.8 K/uL (4.8-10.8)
[2020-02-23 05:08] LABS: BAND NEUTROPHILS % (MANUAL) 3 % (0-2); LYMPHOCYTES % (MANUAL) 1 % (22-44); MONOCYTES % (MANUAL) 2 % (2-9); SEGMENTED NEUTROPHILS % 94 % (40-70)
[2020-02-23 05:09] LABS: ALBUMIN 1.9 g/dL (3.5-5.0); BILIRUBIN,TOTAL 0.6 mg/dL (0.2-1.0); CREATININE 0.8 mg/dL (0.5-1.5); CRP QUANTITATIVE 132.8 mg/L (0.00-9.0); MAN.DIFF COMMENT-IMPRESSION MANUAL DIFFERENTIAL; TOTAL PROTEIN, SERUM 7.2 g/dL (6.0-8.3)
[2020-02-23] MEDS: PHARMACY COMMUNICATION MISC SCH ×3 (06:45→22:45)
[2020-02-23 07:00] VITALS: BP 123/84
[2020-02-23] MEDS: INSULIN HUMULIN R 100 UNIT/ML 3ML SQ SCH ×4 (07:05→20:56)
[2020-02-23] MEDS: ASPIRIN 81MG CHEW TAB PO SCH (08:55)
[2020-02-23] MEDS: DEXAMETHASONE SOD PHOSPHATE 4 MG/ML 1ML VIAL IVP SCH (08:55)
[2020-02-23] MEDS: FAMOTIDINE 20MG TAB PO SCH ×2 (08:55→19:35)
[2020-02-23] MEDS: ASCORBIC ACID 500 MG TAB PO SCH (08:56)
[2020-02-23] MEDS: FOLIC ACID 1 MG TABLET PO SCH (08:56)
[2020-02-23] MEDS: ZINC SULFATE 220 CAPSULE PO SCH (08:56)
[2020-02-23] MEDS: ENOXAPARIN SODIUM 40 MG/0.4 ML SYRINGE SQ SCH ×2 (08:56→19:35)
[2020-02-23 10:11] LABS: CHOLESTEROL 151 mg/dL (<200); HDL CHOLESTEROL 28 mg/dL (29-71); LDL DIRECT 83 mg/dL (0-99); TRIGLYCERIDES 190 mg/dL (30-200)
[2020-02-23 11:00] VITALS: BP 111/64
[2020-02-23] MEDS: M.V.I. IV [ADULT] 10 ML in CLINIMIX-E 5%AA /D15%W 2000ML 2,000 ML IV NR (12:32)
[2020-02-23 15:00] VITALS: BP 120/90
[2020-02-23 20:00] VITALS: BP 125/81
[2020-02-24] VITALS (7 sets, daily range): BP systolic 114–148; BP diastolic 72–82
[2020-02-24 05:07] LABS: HEMATOCRIT 46.4 % (42-54); MEAN CORPUSCULAR HEMOGLOBIN 30.1 pg (27.0-33.0); MEAN CORPUSCULAR HGB CONC 30.6 g/dL (32.0-36.0); MEAN CORPUSCULAR VOLUME 98.3 fL (79-99); RED BLOOD CELL COUNT(AUTO) 4.72 MIL/uL (4.50-6.20); WHITE BLOOD COUNT (AUTO) 23.4 K/uL (4.8-10.8)
[2020-02-24 05:14] LABS: ABG BASE EXCESS 6.3 mmol/L (-2.0-3.0); ABG HCO3 30.9 mmol/L (21.0-28.0); ABG OXYGEN SATURATION 95.6 % (95.0-99.0); ABG PCO2 44 mmHg (35-48)
[2020-02-24] MEDS: INSULIN HUMULIN R 100 UNIT/ML 3ML SQ SCH ×4 (05:33→22:23)
[2020-02-24 06:20] LABS: CREATININE 0.8 mg/dL (0.5-1.5); MAGNESIUM 2.5 mg/dL (1.80-2.40); POTASSIUM 4.3 mmol/L (3.5-5.1)
[2020-02-24] MEDS: PHARMACY COMMUNICATION MISC SCH ×3 (06:45→22:45)
[2020-02-24] MEDS: ASCORBIC ACID 500 MG TAB PO SCH (09:00)
[2020-02-24] MEDS: METOPROLOL TARTRATE 1 MG/ML 5ML VIAL IV PRN ×2 (11:44→16:48)
[2020-02-24] MEDS: M.V.I. IV [ADULT] 10 ML in CLINIMIX-E 5%AA /D15%W 2000ML 2,000 ML IV NR (12:36)
[2020-02-24] MEDS: FOLIC ACID 1 MG TABLET PO SCH (12:53)
[2020-02-24] MEDS: FAMOTIDINE 20MG TAB PO SCH ×2 (12:53→22:10)
[2020-02-24] MEDS: DEXAMETHASONE SOD PHOSPHATE 4 MG/ML 1ML VIAL IVP SCH (12:53)
[2020-02-24] MEDS: ASPIRIN 81MG CHEW TAB PO SCH (12:53)
[2020-02-24] MEDS: ZINC SULFATE 220 CAPSULE PO SCH (12:54)
[2020-02-24] MEDS: ENOXAPARIN SODIUM 40 MG/0.4 ML SYRINGE SQ SCH ×2 (13:01→22:10)
[2020-02-24] MEDS: 0.9%NACL 1000ML 1,000 ML IV SCH (22:24)
[2020-02-25 03:00] VITALS: BP 115/80
[2020-02-25 04:40] LABS: BASOPHILS % (AUTO) 0.1 % (0.0-5.0); HEMATOCRIT 39.3 % (42-54); LYMPHOCYTES % (AUTO) 3.3 % (21.0-51.0); MEAN CORPUSCULAR HEMOGLOBIN 29.8 pg (27.0-33.0); MEAN CORPUSCULAR HGB CONC 34.4 g/dL (32.0-36.0); MEAN CORPUSCULAR VOLUME 86.8 fL (79-99); MONOCYTES % (AUTO) 1.3 % (3.0-13.0); NEUTROPHILS % (AUTO) 94.5 % (40.0-77.0); PLATELET COUNT (AUTO) 136 K/uL (130-400); RED BLOOD CELL COUNT(AUTO) 4.53 MIL/uL (4.50-6.20); RED CELL DISTRIBUTION WIDTH 12.8 % (11.0-15.5); WHITE BLOOD COUNT (AUTO) 21.3 K/uL (4.8-10.8)
[2020-02-25 04:55] LABS: ALBUMIN 1.7 g/dL (3.5-5.0); BILIRUBIN,TOTAL 0.6 mg/dL (0.2-1.0); CREATININE 0.8 mg/dL (0.5-1.5); MAGNESIUM 2.3 mg/dL (1.80-2.40); POTASSIUM 4.8 mmol/L (3.5-5.1); TOTAL PROTEIN, SERUM 6.2 g/dL (6.0-8.3)
[2020-02-25] MEDS: INSULIN HUMULIN R 100 UNIT/ML 3ML SQ SCH ×4 (06:41→20:53)
[2020-02-25] MEDS: PHARMACY COMMUNICATION MISC SCH ×3 (06:45→22:45)
[2020-02-25 07:32] LABS: ABG BASE EXCESS 4.8 mmol/L (-2.0-3.0); ABG HCO3 29.8 mmol/L (21.0-28.0); ABG PCO2 45 mmHg (35-48)
[2020-02-25] MEDS: 0.9%NACL 1000ML 1,000 ML IV SCH ×2 (07:35→21:53)
[2020-02-25 08:30] VITALS: BP 127/75
[2020-02-25] MEDS: FAMOTIDINE 20MG TAB PO SCH ×2 (09:00→19:27)
[2020-02-25] MEDS: ZINC SULFATE 220 CAPSULE PO SCH (09:00)
[2020-02-25] MEDS: ASCORBIC ACID 500 MG TAB PO SCH (09:00)
[2020-02-25] MEDS: FOLIC ACID 1 MG TABLET PO SCH (09:00)
[2020-02-25] MEDS: ASPIRIN 81MG CHEW TAB PO SCH (10:05)
[2020-02-25] MEDS: DEXAMETHASONE SOD PHOSPHATE 4 MG/ML 1ML VIAL IVP SCH (10:06)
[2020-02-25] MEDS: ENOXAPARIN SODIUM 40 MG/0.4 ML SYRINGE SQ SCH ×2 (10:07→19:27)
[2020-02-25 12:51] VITALS: BP 135/78
[2020-02-25 16:30] VITALS: BP 129/83
[2020-02-25] MEDS ORDERED: M.V.I. IV [ADULT] 10 ML in CLINIMIX-E 5%AA /D15%W 2000ML 2,000 ML IV ONE (17:00)
[2020-02-25 19:00] VITALS: BP 135/83
[2020-02-25] MEDS: FUROSEMIDE 20MG VIAL IV SCH (22:15)
[2020-02-25 23:00] VITALS: BP 142/74
[2020-02-26 03:00] VITALS: BP 140/88
[2020-02-26 05:07] LABS: HEMATOCRIT 38.4 % (42-54); MEAN CORPUSCULAR HEMOGLOBIN 29.9 pg (27.0-33.0); MEAN CORPUSCULAR HGB CONC 34.4 g/dL (32.0-36.0); MEAN CORPUSCULAR VOLUME 87.1 fL (79-99); RED BLOOD CELL COUNT(AUTO) 4.41 MIL/uL (4.50-6.20); RED CELL DISTRIBUTION WIDTH 12.8 % (11.0-15.5); WHITE BLOOD COUNT (AUTO) 21.8 K/uL (4.8-10.8)
[2020-02-26 05:22] LABS: CREATININE 0.6 mg/dL (0.5-1.5); POTASSIUM 4.9 mmol/L (3.5-5.1)
[2020-02-26] MEDS: INSULIN HUMULIN R 100 UNIT/ML 3ML SQ SCH ×4 (05:29→20:47)
[2020-02-26] MEDS: PHARMACY COMMUNICATION MISC SCH ×3 (06:45→22:45)
[2020-02-26 07:30] VITALS: BP 134/82
[2020-02-26 08:02] LABS: ABG BASE EXCESS 4.4 mmol/L (-2.0-3.0); ABG HCO3 30.2 mmol/L (21.0-28.0); ABG OXYGEN SATURATION 88.9 % (95.0-99.0); ABG PCO2 49 mmHg (35-48)
[2020-02-26] MEDS ORDERED: FAMOTIDINE 20MG VIAL IV ONE (09:02)
[2020-02-26] MEDS: DEXAMETHASONE SOD PHOSPHATE 4 MG/ML 1ML VIAL IVP SCH (10:09)
[2020-02-26] MEDS: ASCORBIC ACID 500 MG TAB PO SCH (10:10)
[2020-02-26] MEDS: ENOXAPARIN SODIUM 40 MG/0.4 ML SYRINGE SQ SCH ×2 (10:10→20:46)
[2020-02-26] MEDS: ASPIRIN 81MG CHEW TAB PO SCH (10:10)
[2020-02-26] MEDS: FOLIC ACID 1 MG TABLET PO SCH (10:10)
[2020-02-26] MEDS: ZINC SULFATE 220 CAPSULE PO SCH (10:10)
[2020-02-26] MEDS: FAMOTIDINE 20MG TAB PO SCH ×2 (10:10→20:46)
[2020-02-26] MEDS: FUROSEMIDE 20MG VIAL IV SCH ×2 (10:10→20:46)
[2020-02-26] MEDS: 0.9%NACL 1000ML 1,000 ML IV SCH (10:38)
[2020-02-26] MEDS: METOPROLOL TARTRATE 1 MG/ML 5ML VIAL IV PRN (10:39)
[2020-02-26 12:00] VITALS: BP 108/68
[2020-02-26 16:30] VITALS: BP 114/75
[2020-02-26 19:56] VITALS: BP 133/88
[2020-02-26 23:20] VITALS: BP 120/82
[2020-02-27] MEDS: 0.9%NACL 1000ML 1,000 ML IV SCH ×2 (00:20→12:55)
[2020-02-27 03:24] VITALS: BP 129/88
[2020-02-27 04:33] LABS: ABG BASE EXCESS 3.9 mmol/L (-2.0-3.0); ABG HCO3 28.7 mmol/L (21.0-28.0); ABG OXYGEN SATURATION 91.2 % (95.0-99.0); ABG PCO2 43 mmHg (35-48)
[2020-02-27 05:02] LABS: HEMATOCRIT 42.3 % (42-54); MEAN CORPUSCULAR HEMOGLOBIN 29.7 pg (27.0-33.0); MEAN CORPUSCULAR HGB CONC 34.5 g/dL (32.0-36.0); MEAN CORPUSCULAR VOLUME 86.2 fL (79-99); RED BLOOD CELL COUNT(AUTO) 4.91 MIL/uL (4.50-6.20); RED CELL DISTRIBUTION WIDTH 12.8 % (11.0-15.5); WHITE BLOOD COUNT (AUTO) 24.4 K/uL (4.8-10.8)
[2020-02-27 05:25] LABS: ALBUMIN 1.9 g/dL (3.5-5.0); BILIRUBIN,TOTAL 0.8 mg/dL (0.2-1.0); CREATININE 0.7 mg/dL (0.5-1.5); POTASSIUM 4.3 mmol/L (3.5-5.1); TOTAL PROTEIN, SERUM 6.7 g/dL (6.0-8.3)
[2020-02-27] MEDS: PHARMACY COMMUNICATION MISC SCH ×2 (06:45→14:45)
[2020-02-27 08:00] VITALS: BP 144/86
[2020-02-27] MEDS: FOLIC ACID 1 MG TABLET PO SCH (09:00)
[2020-02-27] MEDS: ZINC SULFATE 220 CAPSULE PO SCH (09:00)
[2020-02-27] MEDS: ASPIRIN 81MG CHEW TAB PO SCH (09:00)
[2020-02-27] MEDS: ASCORBIC ACID 500 MG TAB PO SCH (09:00)
[2020-02-27] MEDS: FAMOTIDINE 20MG TAB PO SCH ×2 (09:00→22:07)
[2020-02-27 10:06] VITALS: BP 118/84
[2020-02-27] MEDS: METOPROLOL TARTRATE 1 MG/ML 5ML VIAL IV PRN (10:17)
[2020-02-27] MEDS: DEXAMETHASONE SOD PHOSPHATE 4 MG/ML 1ML VIAL IVP SCH (10:17)
[2020-02-27] MEDS: FUROSEMIDE 20MG VIAL IV SCH ×2 (10:17→22:07)
[2020-02-27] MEDS: ENOXAPARIN SODIUM 40 MG/0.4 ML SYRINGE SQ SCH ×2 (10:26→22:07)
[2020-02-27 12:00] VITALS: BP 123/69
[2020-02-27] MEDS: CHLORHEXIDINE GLUCONATE 473 ML MOUTHWASH MM SCH ×3 (13:00→22:07)
[2020-02-27] MEDS: INSULIN HUMULIN R 100 UNIT/ML 3ML SQ SCH ×3 (13:24→22:00)
[2020-02-27 16:00] VITALS: BP 130/87
[2020-02-27] MEDS: CLINIMIX E 5% IV SCH (17:20)
[2020-02-27] MEDS: [UNRECOGNIZED DRUG - OTHER] IV SCH (17:20)
[2020-02-27 20:00] VITALS: BP 139/83
[2020-02-28 00:16] VITALS: BP 128/82
[2020-02-28] MEDS: 0.9%NACL 1000ML 1,000 ML IV SCH ×3 (02:15→21:09)
[2020-02-28 04:57] LABS: BASOPHILS % (AUTO) 0.1 % (0.0-5.0); EOSINOPHILS % (AUTO) 0.2 % (0.0-8.0); HEMATOCRIT 41.3 % (42-54); LYMPHOCYTES % (AUTO) 4.5 % (21.0-51.0); MEAN CORPUSCULAR HEMOGLOBIN 30.1 pg (27.0-33.0); MEAN CORPUSCULAR HGB CONC 35.1 g/dL (32.0-36.0); MEAN CORPUSCULAR VOLUME 85.9 fL (79-99); MONOCYTES % (AUTO) 2.2 % (3.0-13.0); NEUTROPHILS % (AUTO) 91.3 % (40.0-77.0); PLATELET COUNT (AUTO) 139 K/uL (130-400); RED BLOOD CELL COUNT(AUTO) 4.81 MIL/uL (4.50-6.20); RED CELL DISTRIBUTION WIDTH 12.9 % (11.0-15.5); WHITE BLOOD COUNT (AUTO) 18.7 K/uL (4.8-10.8)
[2020-02-28 05:14] LABS: CREATININE 0.6 mg/dL (0.5-1.5); POTASSIUM 4.3 mmol/L (3.5-5.1)
[2020-02-28 05:33] LABS: ABG BASE EXCESS 7.1 mmol/L (-2.0-3.0); ABG HCO3 32.8 mmol/L (21.0-28.0); ABG PCO2 50 mmHg (35-48)
[2020-02-28] MEDS: INSULIN HUMULIN R 100 UNIT/ML 3ML SQ SCH ×4 (06:04→21:30)
[2020-02-28] MEDS: CLINIMIX E 5% IV SCH ×2 (06:05→09:30)
[2020-02-28] MEDS: [UNRECOGNIZED DRUG - OTHER] IV SCH ×2 (06:05→09:30)
[2020-02-28] MEDS: PHARMACY COMMUNICATION MISC SCH (06:45)
[2020-02-28 08:00] VITALS: BP 138/89
[2020-02-28] MEDS: ENOXAPARIN SODIUM 40 MG/0.4 ML SYRINGE SQ SCH ×2 (09:09→21:08)
[2020-02-28] MEDS: FAMOTIDINE 20MG TAB PO SCH ×2 (09:10→21:08)
[2020-02-28] MEDS: ZINC SULFATE 220 CAPSULE PO SCH (09:10)
[2020-02-28] MEDS: ASPIRIN 81MG CHEW TAB PO SCH (09:10)
[2020-02-28] MEDS: ASCORBIC ACID 500 MG TAB PO SCH (09:10)
[2020-02-28] MEDS: FOLIC ACID 1 MG TABLET PO SCH (09:10)
[2020-02-28] MEDS: DEXAMETHASONE SOD PHOSPHATE 4 MG/ML 1ML VIAL IVP SCH (09:10)
[2020-02-28] MEDS: FUROSEMIDE 20MG VIAL IV SCH ×2 (09:11→21:08)
[2020-02-28] MEDS: CHLORHEXIDINE GLUCONATE 473 ML MOUTHWASH MM SCH ×4 (09:12→21:07)
[2020-02-28 12:00] VITALS: BP 131/86
[2020-02-28 16:00] VITALS: BP 138/92
[2020-02-28 19:40] VITALS: BP 127/83
[2020-02-28 23:43] VITALS: BP 120/72
[2020-02-29] VITALS (31 sets, daily range): BP systolic 86–130; BP diastolic 51–88
[2020-02-29 04:07] LABS: HEMATOCRIT 42.3 % (42-54); MEAN CORPUSCULAR HEMOGLOBIN 30.1 pg (27.0-33.0); MEAN CORPUSCULAR HGB CONC 34.8 g/dL (32.0-36.0); MEAN CORPUSCULAR VOLUME 86.7 fL (79-99); RED BLOOD CELL COUNT(AUTO) 4.88 MIL/uL (4.50-6.20); RED CELL DISTRIBUTION WIDTH 13.1 % (11.0-15.5); WHITE BLOOD COUNT (AUTO) 20.3 K/uL (4.8-10.8)
[2020-02-29 04:08] LABS: ABG BASE EXCESS 6.7 mmol/L (-2.0-3.0); ABG HCO3 32.3 mmol/L (21.0-28.0); ABG PCO2 50 mmHg (35-48)
[2020-02-29 04:24] LABS: ALBUMIN 1.9 g/dL (3.5-5.0); BILIRUBIN,TOTAL 0.7 mg/dL (0.2-1.0); CREATININE 0.5 mg/dL (0.5-1.5); MAGNESIUM 2.2 mg/dL (1.80-2.40); PHOSPHORUS 3.9 mg/dL (2.5-4.9); POTASSIUM 3.9 mmol/L (3.5-5.1); TOTAL PROTEIN, SERUM 6.7 g/dL (6.0-8.3)
[2020-02-29] MEDS: INSULIN HUMULIN R 100 UNIT/ML 3ML SQ SCH ×3 (06:09→18:00)
[2020-02-29] MEDS ORDERED: MIDAZOLAM HCL 1 MG/ML 2ML VIAL IVP SCH (07:34)
[2020-02-29] MEDS ORDERED: FENTANYL CITRATE PF 50 MCG/1 ML 2ML VIAL IVP SCH (07:34)
[2020-02-29] MEDS ORDERED: FENTANYL CITRATE PF 50 MCG/1 ML 2ML VIAL ONE (07:45)
[2020-02-29] MEDS ORDERED: PHARMACY COMMUNICATION MISC SCH (07:45)
[2020-02-29] MEDS ORDERED: FENTANYL CITRATE PF 0.05 MG/ML 1,000 MCG in 0.9%NACL 100ML 100 ML IVPB SCH (07:45)
[2020-02-29] MEDS ORDERED: MIDAZOLAM HCL 1 MG/ML 2ML VIAL ONE (07:45)
[2020-02-29] MEDS ORDERED: FENTANYL 2500MCG+NS 250ML 250 ML IV ONE (07:46)
[2020-02-29] MEDS ORDERED: NOREPINEPHRIN 4MG/NS 250ML 250 ML IV ONE ×2 (07:59→15:49)
[2020-02-29 09:03] LABS: ABG BASE EXCESS 2.8 mmol/L (-2.0-3.0); ABG HCO3 33.2 mmol/L (21.0-28.0); ABG OXYGEN SATURATION 99.2 % (95.0-99.0); ABG PCO2 80 mmHg (35-48)
[2020-02-29] MEDS: ENOXAPARIN SODIUM 40 MG/0.4 ML SYRINGE SQ SCH ×2 (09:25→19:44)
[2020-02-29] MEDS: FAMOTIDINE 20MG TAB PO SCH ×2 (09:25→19:43)
[2020-02-29] MEDS: ASCORBIC ACID 500 MG TAB PO SCH (09:25)
[2020-02-29] MEDS: ZINC SULFATE 220 CAPSULE PO SCH (09:26)
[2020-02-29] MEDS: FOLIC ACID 1 MG TABLET PO SCH (09:26)
[2020-02-29] MEDS: DEXAMETHASONE SOD PHOSPHATE 4 MG/ML 1ML VIAL IVP SCH (09:26)
[2020-02-29] MEDS: ASPIRIN 81MG CHEW TAB PO SCH (09:27)
[2020-02-29] MEDS: FUROSEMIDE 20MG VIAL IV SCH (09:27)
[2020-02-29] MEDS: CHLORHEXIDINE GLUCONATE 473 ML MOUTHWASH MM SCH ×4 (09:29→19:44)
[2020-02-29 14:34] LABS: ABG BASE EXCESS 3.1 mmol/L (-2.0-3.0); ABG HCO3 33.3 mmol/L (21.0-28.0); ABG OXYGEN SATURATION 93.9 % (95.0-99.0); ABG PCO2 79 mmHg (35-48)
[2020-02-29] MEDS ORDERED: NOREPINEPHRINE BITARTRATE 32 MG in 0.9% NACL 250ML 250 ML IV SCH (16:00)
[2020-02-29] MEDS ORDERED: LACTATED RINGERS 1000ML IV SCH (16:30)
[2020-02-29] MEDS ORDERED: IOHEXOL 350 MG/ML 100ML INFUS..BTL IV ONE (18:13)
[2020-02-29] MEDS: 0.9%NACL 1000ML 1,000 ML IV SCH (18:15)
[2020-02-29] MEDS ORDERED: LACTATED RINGERS 1000ML 1,000 ML IV SCH (21:45)
[2020-03-01] VITALS (91 sets, daily range): BP systolic 84–164; BP diastolic 50–95
[2020-03-01 04:24] LABS: BASOPHILS % (AUTO) 0.3 % (0.0-5.0); LYMPHOCYTES % (AUTO) 1.9 % (21.0-51.0); MEAN CORPUSCULAR HEMOGLOBIN 30.2 pg (27.0-33.0); MEAN CORPUSCULAR HGB CONC 32.5 g/dL (32.0-36.0); MEAN CORPUSCULAR VOLUME 92.8 fL (79-99); MONOCYTES % (AUTO) 0.6 % (3.0-13.0); NEUTROPHILS % (AUTO) 95.1 % (40.0-77.0); PLATELET COUNT (AUTO) 211 K/uL (130-400); RED BLOOD CELL COUNT(AUTO) 4.74 MIL/uL (4.50-6.20); RED CELL DISTRIBUTION WIDTH 14.1 % (11.0-15.5); WHITE BLOOD COUNT (AUTO) 29.5 K/uL (4.8-10.8)
[2020-03-01] MEDS: 0.9%NACL 1000ML 1,000 ML IV SCH ×5 (04:46→20:50)
[2020-03-01 04:51] LABS: MAGNESIUM 2.2 mg/dL (1.80-2.40); PHOSPHORUS 6.4 mg/dL (2.5-4.9); POTASSIUM 5.9 mmol/L (3.5-5.1)
[2020-03-01] MEDS: INSULIN HUMULIN R 100 UNIT/ML 3ML SQ SCH ×4 (06:00→18:00)
[2020-03-01] MEDS: DEXAMETHASONE SOD PHOSPHATE 4 MG/ML 1ML VIAL IVP SCH (07:49)
[2020-03-01] MEDS: ASCORBIC ACID 500 MG TAB PO SCH (07:49)
[2020-03-01] MEDS: ZINC SULFATE 220 CAPSULE PO SCH (07:49)
[2020-03-01] MEDS: FAMOTIDINE 20MG TAB PO SCH ×2 (07:50→22:46)
[2020-03-01] MEDS: ASPIRIN 81MG CHEW TAB PO SCH (07:50)
[2020-03-01] MEDS: FOLIC ACID 1 MG TABLET PO SCH (07:50)
[2020-03-01] MEDS: CHLORHEXIDINE GLUCONATE 473 ML MOUTHWASH MM SCH ×4 (07:51→21:00)
[2020-03-01] MEDS ORDERED: VANCOMYCIN 1G 1.5 GM in 0.9% NACL 250ML 250 ML IV ONE (08:00)
[2020-03-01] MEDS ORDERED: COMPOUND IV REFRIGERATED 1 EACH IVSOLN MISC PRN (08:15)
[2020-03-01] MEDS: CEFEPIME HCL 2 GM VIAL IVP SCH ×2 (08:16→17:22)
[2020-03-01] MEDS: ENOXAPARIN SODIUM 80 MG/0.8 ML SQ SCH (08:17)
[2020-03-01] MEDS: FENTANYL 2500MCG+NS 250ML 250 ML IV SCH ×2 (08:18→08:39)
[2020-03-01] MEDS: MIDAZOLAM 100MG-0.9% NS 100ML 100 ML IV SCH ×2 (08:19→08:40)
[2020-03-01] MEDS ORDERED: VANCOMYCIN PROTOCOL PER PHARMACY IV SCH (09:00)
[2020-03-01] MEDS ORDERED: ENOXAPARIN SODIUM 1 MG/KG SQ SCH (09:00)
[2020-03-01 09:35] LABS: ABG BASE EXCESS -3.6 mmol/L (-2.0-3.0); ABG HCO3 27.1 mmol/L (21.0-28.0); ABG OXYGEN SATURATION 97.4 % (95.0-99.0); ABG PCO2 76 mmHg (35-48)
[2020-03-01] MEDS: LEVOFLOXACIN 750 MG/D5W 150 ML 150 ML IV SCH (09:43)
[2020-03-01] MEDS: FUROSEMIDE 20MG VIAL IV SCH ×2 (10:15)
[2020-03-01] MEDS ORDERED: SODIUM BICARB 50MEQ 50ML VIAL IV SCH (12:15)
[2020-03-01] MEDS ORDERED: FLUCONAZOLE IV SCH (16:45)
[2020-03-01] MEDS ORDERED: NS IV SCH (16:45)
[2020-03-01] MEDS: VANCOMYCIN 1G/250ML KIT 250 ML IV SCH (18:04)
[2020-03-02] VITALS (63 sets, daily range): BP systolic 80–228; BP diastolic 50–122
[2020-03-02] MEDS: INSULIN HUMULIN R 100 UNIT/ML 3ML SQ SCH ×4 (00:39→18:10)
[2020-03-02] MEDS: CEFEPIME HCL 2 GM VIAL IVP SCH ×3 (00:59→16:32)
[2020-03-02 04:25] LABS: ABG BASE EXCESS 4.9 mmol/L (-2.0-3.0); ABG HCO3 35.9 mmol/L (21.0-28.0); ABG OXYGEN SATURATION 90.5 % (95.0-99.0); ABG PCO2 87 mmHg (35-48)
[2020-03-02 05:19] LABS: BASOPHILS % (AUTO) 0.2 % (0.0-5.0); HEMATOCRIT 37.9 % (42-54); LYMPHOCYTES % (AUTO) 2.9 % (21.0-51.0); MEAN CORPUSCULAR HEMOGLOBIN 29.9 pg (27.0-33.0); MEAN CORPUSCULAR HGB CONC 31.9 g/dL (32.0-36.0); MEAN CORPUSCULAR VOLUME 93.6 fL (79-99); MONOCYTES % (AUTO) 2.8 % (3.0-13.0); NEUTROPHILS % (AUTO) 92.7 % (40.0-77.0); PLATELET COUNT (AUTO) 199 K/uL (130-400); RED BLOOD CELL COUNT(AUTO) 4.05 MIL/uL (4.50-6.20); RED CELL DISTRIBUTION WIDTH 14.5 % (11.0-15.5); WHITE BLOOD COUNT (AUTO) 26.2 K/uL (4.8-10.8)
[2020-03-02] MEDS: VANCOMYCIN 1G/250ML KIT 250 ML IV SCH ×2 (05:26→18:59)
[2020-03-02 05:33] LABS: ALBUMIN 1.7 g/dL (3.5-5.0); BILIRUBIN,TOTAL 0.5 mg/dL (0.2-1.0); CREATININE 0.7 mg/dL (0.5-1.5); CRP QUANTITATIVE 25.9 mg/L (0.00-9.0); MAGNESIUM 2.3 mg/dL (1.80-2.40); PHOSPHORUS 3.1 mg/dL (2.5-4.9); POTASSIUM 4.8 mmol/L (3.5-5.1); TOTAL PROTEIN, SERUM 5.2 g/dL (6.0-8.3)
[2020-03-02] MEDS ORDERED: 0.9%NACL 1000ML 1,000 ML IV SCH (07:30)
[2020-03-02] MEDS: FAMOTIDINE 20MG TAB PO SCH ×2 (09:03→20:13)
[2020-03-02] MEDS: DEXAMETHASONE SOD PHOSPHATE 4 MG/ML 1ML VIAL IVP SCH (09:27)
[2020-03-02] MEDS: ASPIRIN 81MG CHEW TAB PO SCH (09:28)
[2020-03-02] MEDS: ZINC SULFATE 220 CAPSULE PO SCH (09:28)
[2020-03-02] MEDS: FOLIC ACID 1 MG TABLET PO SCH (09:29)
[2020-03-02] MEDS: ASCORBIC ACID 500 MG TAB PO SCH (09:29)
[2020-03-02] MEDS: FLUCONAZOLE 400 MG/NS 200 ML 200 ML IV SCH (09:33)
[2020-03-02] MEDS: CHLORHEXIDINE GLUCONATE 473 ML MOUTHWASH MM SCH ×4 (09:34→20:14)
[2020-03-02] MEDS: ENOXAPARIN SODIUM 80 MG/0.8 ML SQ SCH (09:36)
[2020-03-02] MEDS: LEVOFLOXACIN 750 MG/D5W 150 ML 150 ML IV SCH (09:40)
[2020-03-02] MEDS: MIDAZOLAM 100MG-0.9% NS 100ML 100 ML IV SCH (10:01)
[2020-03-02] MEDS: 0.9%NACL 1000ML 1,000 ML IV SCH (10:10)
[2020-03-02] MEDS: FENTANYL 2500MCG+NS 250ML 250 ML IV SCH (11:08)
[2020-03-02 13:09] LABS: ABG BASE EXCESS 3.1 mmol/L (-2.0-3.0); ABG HCO3 33.2 mmol/L (21.0-28.0); ABG PCO2 79 mmHg (35-48)
[2020-03-02] MEDS: SOLU-MEDROL 40MG VIAL IVP SCH (16:32)
[2020-03-03] VITALS (74 sets, daily range): BP systolic 89–147; BP diastolic 30–83
[2020-03-03] MEDS: SOLU-MEDROL 40MG VIAL IVP SCH ×3 (00:26→15:47)
[2020-03-03] MEDS: 0.9%NACL 1000ML 1,000 ML IV SCH ×2 (00:26→16:13)
[2020-03-03] MEDS: INSULIN HUMULIN R 100 UNIT/ML 3ML SQ SCH ×4 (00:27→17:25)
[2020-03-03] MEDS: CEFEPIME HCL 2 GM VIAL IVP SCH ×4 (02:18→16:15)
[2020-03-03 04:04] LABS: BASOPHILS % (AUTO) 0.1 % (0.0-5.0); HEMATOCRIT 32.2 % (42-54); LYMPHOCYTES % (AUTO) 1.4 % (21.0-51.0); MEAN CORPUSCULAR HEMOGLOBIN 31.4 pg (27.0-33.0); MEAN CORPUSCULAR HGB CONC 33.2 g/dL (32.0-36.0); MEAN CORPUSCULAR VOLUME 94.4 fL (79-99); NEUTROPHILS % (AUTO) 96.7 % (40.0-77.0); PLATELET COUNT (AUTO) 140 K/uL (130-400); RED BLOOD CELL COUNT(AUTO) 3.41 MIL/uL (4.50-6.20); RED CELL DISTRIBUTION WIDTH 14.8 % (11.0-15.5)
[2020-03-03 04:24] LABS: ALBUMIN 1.6 g/dL (3.5-5.0); BILIRUBIN,TOTAL 0.4 mg/dL (0.2-1.0); CREATININE 0.5 mg/dL (0.5-1.5); MAGNESIUM 2.4 mg/dL (1.80-2.40); PHOSPHORUS 2.4 mg/dL (2.5-4.9); POTASSIUM 4.4 mmol/L (3.5-5.1); TOTAL PROTEIN, SERUM 5.1 g/dL (6.0-8.3)
[2020-03-03] MEDS: VANCOMYCIN 1G/250ML KIT 250 ML IV SCH ×2 (05:30→17:25)
[2020-03-03] MEDS: FLUCONAZOLE 400 MG/NS 200 ML 200 ML IV SCH (08:01)
[2020-03-03] MEDS: ENOXAPARIN SODIUM 80 MG/0.8 ML SQ SCH (08:01)
[2020-03-03] MEDS: LEVOFLOXACIN 750 MG/D5W 150 ML 150 ML IV SCH (08:01)
[2020-03-03] MEDS: ASPIRIN 81MG CHEW TAB PO SCH (08:02)
[2020-03-03] MEDS: ASCORBIC ACID 500 MG TAB PO SCH (08:02)
[2020-03-03] MEDS: ZINC SULFATE 220 CAPSULE PO SCH (08:02)
[2020-03-03] MEDS: FOLIC ACID 1 MG TABLET PO SCH (08:03)
[2020-03-03] MEDS: FAMOTIDINE 20MG TAB PO SCH ×2 (08:03→21:03)
[2020-03-03] MEDS: CHLORHEXIDINE GLUCONATE 473 ML MOUTHWASH MM SCH ×4 (08:03→21:03)
[2020-03-03 13:57] LABS: ABG BASE EXCESS 7.8 mmol/L (-2.0-3.0); ABG HCO3 37.1 mmol/L (21.0-28.0); ABG OXYGEN SATURATION 98.5 % (95.0-99.0); ABG PCO2 75 mmHg (35-48)
[2020-03-03] MEDS: MIDAZOLAM 100MG-0.9% NS 100ML 100 ML IV SCH (16:17)
[2020-03-03] MEDS: FENTANYL 2500MCG+NS 250ML 250 ML IV SCH (16:21)
[2020-03-04] VITALS (56 sets, daily range): BP systolic 104–137; BP diastolic 49–67
[2020-03-04] MEDS: SOLU-MEDROL 40MG VIAL IVP SCH ×3 (00:36→16:03)
[2020-03-04] MEDS: 0.9%NACL 1000ML 1,000 ML IV SCH (02:56)
[2020-03-04 04:21] LABS: BASOPHILS % (AUTO) 0.1 % (0.0-5.0); HEMATOCRIT 28.7 % (42-54); LYMPHOCYTES % (AUTO) 1.7 % (21.0-51.0); MEAN CORPUSCULAR HEMOGLOBIN 30.1 pg (27.0-33.0); MEAN CORPUSCULAR HGB CONC 32.4 g/dL (32.0-36.0); MEAN CORPUSCULAR VOLUME 92.9 fL (79-99); MONOCYTES % (AUTO) 1.7 % (3.0-13.0); NEUTROPHILS % (AUTO) 95.8 % (40.0-77.0); PLATELET COUNT (AUTO) 125 K/uL (130-400); RED BLOOD CELL COUNT(AUTO) 3.09 MIL/uL (4.50-6.20); RED CELL DISTRIBUTION WIDTH 14.7 % (11.0-15.5); WHITE BLOOD COUNT (AUTO) 12.7 K/uL (4.8-10.8)
[2020-03-04 04:36] LABS: ABG BASE EXCESS 12.3 mmol/L (-2.0-3.0); ABG HCO3 43.3 mmol/L (21.0-28.0); ABG OXYGEN SATURATION 95.7 % (95.0-99.0); ABG PCO2 91 mmHg (35-48)
[2020-03-04 04:39] LABS: ALBUMIN 1.5 g/dL (3.5-5.0); BILIRUBIN,TOTAL 0.4 mg/dL (0.2-1.0); CREATININE 0.3 mg/dL (0.5-1.5); MAGNESIUM 2.1 mg/dL (1.80-2.40); PHOSPHORUS 2.1 mg/dL (2.5-4.9); POTASSIUM 3.6 mmol/L (3.5-5.1); TOTAL PROTEIN, SERUM 4.4 g/dL (6.0-8.3)
[2020-03-04] MEDS: INSULIN HUMULIN R 100 UNIT/ML 3ML SQ SCH ×3 (05:50→18:50)
[2020-03-04] MEDS: VANCOMYCIN 1G/250ML KIT 250 ML IV SCH ×2 (06:12→17:25)
[2020-03-04] MEDS: MIDAZOLAM 100MG-0.9% NS 100ML 100 ML IV SCH ×2 (06:15→15:40)
[2020-03-04] MEDS: DEXTROSE 5%-WATER 1,000 ML IV SCH (07:30)
[2020-03-04] MEDS: CEFEPIME HCL 2 GM VIAL IVP SCH ×2 (08:54→17:25)
[2020-03-04] MEDS: FOLIC ACID 1 MG TABLET PO SCH (08:54)
[2020-03-04] MEDS: FAMOTIDINE 20MG TAB PO SCH ×2 (08:54→21:27)
[2020-03-04] MEDS: ASPIRIN 81MG CHEW TAB PO SCH (08:54)
[2020-03-04] MEDS: ASCORBIC ACID 500 MG TAB PO SCH (08:54)
[2020-03-04] MEDS: ZINC SULFATE 220 CAPSULE PO SCH (08:54)
[2020-03-04] MEDS: ENOXAPARIN SODIUM 80 MG/0.8 ML SQ SCH (08:55)
[2020-03-04] MEDS: FENTANYL 2500MCG+NS 250ML 250 ML IV SCH (09:10)
[2020-03-04] MEDS: CHLORHEXIDINE GLUCONATE 473 ML MOUTHWASH MM SCH ×4 (09:31→21:28)
[2020-03-04] MEDS: FLUCONAZOLE 400 MG/NS 200 ML 200 ML IV SCH (10:03)
[2020-03-04] MEDS: LEVOFLOXACIN 750 MG/D5W 150 ML 150 ML IV SCH (10:03)
[2020-03-05] VITALS (23 sets, daily range): BP systolic 103–161; BP diastolic 50–87
[2020-03-05] MEDS: SOLU-MEDROL 40MG VIAL IVP SCH ×4 (00:43→23:31)
[2020-03-05] MEDS: CEFEPIME HCL 2 GM VIAL IVP SCH ×3 (00:44→17:20)
[2020-03-05] MEDS: INSULIN HUMULIN R 100 UNIT/ML 3ML SQ SCH ×5 (01:09→23:33)
[2020-03-05] MEDS: FENTANYL 2500MCG+NS 250ML 250 ML IV SCH ×2 (02:10→21:38)
[2020-03-05 03:36] LABS: ABG BASE EXCESS 16.6 mmol/L (-2.0-3.0); ABG HCO3 47.4 mmol/L (21.0-28.0); ABG OXYGEN SATURATION 97.3 % (95.0-99.0); ABG PCO2 89 mmHg (35-48)
[2020-03-05] MEDS: MIDAZOLAM 100MG-0.9% NS 100ML 100 ML IV SCH (04:21)
[2020-03-05] MEDS: VANCOMYCIN 1G/250ML KIT 250 ML IV SCH ×2 (04:23→18:28)
[2020-03-05] MEDS: DEXTROSE 5%-WATER 1,000 ML IV SCH (04:24)
[2020-03-05 06:04] LABS: BASOPHILS % (AUTO) 0.1 % (0.0-5.0); LYMPHOCYTES % (AUTO) 1.6 % (21.0-51.0); MEAN CORPUSCULAR HEMOGLOBIN 29.9 pg (27.0-33.0); MEAN CORPUSCULAR HGB CONC 32.3 g/dL (32.0-36.0); MEAN CORPUSCULAR VOLUME 92.8 fL (79-99); MONOCYTES % (AUTO) 1.4 % (3.0-13.0); NEUTROPHILS % (AUTO) 95.8 % (40.0-77.0); NUCLEATED RED BLOOD CELLS 0.1 % (0.0-0.19); PLATELET COUNT (AUTO) 132 K/uL (130-400); RED BLOOD CELL COUNT(AUTO) 3.34 MIL/uL (4.50-6.20); RED CELL DISTRIBUTION WIDTH 15.1 % (11.0-15.5); WHITE BLOOD COUNT (AUTO) 13.6 K/uL (4.8-10.8)
[2020-03-05 06:23] LABS: ALBUMIN 1.6 g/dL (3.5-5.0); BILIRUBIN,TOTAL 0.4 mg/dL (0.2-1.0); CREATININE 0.5 mg/dL (0.5-1.5); MAGNESIUM 2.4 mg/dL (1.80-2.40); PHOSPHORUS 2.7 mg/dL (2.5-4.9); POTASSIUM 3.8 mmol/L (3.5-5.1); TOTAL PROTEIN, SERUM 4.3 g/dL (6.0-8.3)
[2020-03-05] MEDS: ASCORBIC ACID 500 MG TAB PO SCH (08:50)
[2020-03-05] MEDS: FOLIC ACID 1 MG TABLET PO SCH (08:50)
[2020-03-05] MEDS: ASPIRIN 81MG CHEW TAB PO SCH (08:50)
[2020-03-05] MEDS: FAMOTIDINE 20MG TAB PO SCH ×2 (08:50→20:52)
[2020-03-05] MEDS: FLUCONAZOLE 400 MG/NS 200 ML 200 ML IV SCH (08:51)
[2020-03-05] MEDS: LEVOFLOXACIN 750 MG/D5W 150 ML 150 ML IV SCH (08:51)
[2020-03-05] MEDS: ZINC SULFATE 220 CAPSULE PO SCH (08:51)
[2020-03-05] MEDS: ENOXAPARIN SODIUM 80 MG/0.8 ML SQ SCH (08:51)
[2020-03-05] MEDS: CHLORHEXIDINE GLUCONATE 473 ML MOUTHWASH MM SCH ×4 (08:51→20:50)
[2020-03-05] MEDS: INSULIN GLARGINE 100 UNITS/ML 10 ML VIAL SQ SCH (08:54)
[2020-03-05] MEDS ORDERED: FENTANYL 2500MCG+NS 250ML 250 ML IV ONE (21:29)
[2020-03-05] MEDS: FAMOTIDINE 20MG VIAL IV SCH (21:31)
[2020-03-05] MEDS ORDERED: 0.9%NACL 10ML VIAL ONE ×2 (23:29)
[2020-03-06] VITALS (24 sets, daily range): BP systolic 94–156; BP diastolic 54–80
[2020-03-06] MEDS: CEFEPIME HCL 2 GM VIAL IVP SCH ×3 (00:35→16:40)
[2020-03-06] MEDS: MIDAZOLAM 100MG-0.9% NS 100ML 100 ML IV SCH ×3 (00:39→19:48)
[2020-03-06 04:04] LABS: BASOPHILS % (AUTO) 0.1 % (0.0-5.0); HEMATOCRIT 32.3 % (42-54); LYMPHOCYTES % (AUTO) 1.6 % (21.0-51.0); MEAN CORPUSCULAR HEMOGLOBIN 30.2 pg (27.0-33.0); MEAN CORPUSCULAR HGB CONC 34.1 g/dL (32.0-36.0); MEAN CORPUSCULAR VOLUME 88.7 fL (79-99); MONOCYTES % (AUTO) 1.5 % (3.0-13.0); NEUTROPHILS % (AUTO) 95.7 % (40.0-77.0); PLATELET COUNT (AUTO) 120 K/uL (130-400); RED BLOOD CELL COUNT(AUTO) 3.64 MIL/uL (4.50-6.20); RED CELL DISTRIBUTION WIDTH 14.6 % (11.0-15.5); WHITE BLOOD COUNT (AUTO) 12.2 K/uL (4.8-10.8)
[2020-03-06 04:18] LABS: ALBUMIN 1.7 g/dL (3.5-5.0); BILIRUBIN,TOTAL 0.4 mg/dL (0.2-1.0); CREATININE 0.5 mg/dL (0.5-1.5); MAGNESIUM 2.1 mg/dL (1.80-2.40); PHOSPHORUS 2.1 mg/dL (2.5-4.9); TOTAL PROTEIN, SERUM 4.9 g/dL (6.0-8.3)
[2020-03-06] MEDS: INSULIN HUMULIN R 100 UNIT/ML 3ML SQ SCH ×4 (05:22→23:59)
[2020-03-06] MEDS: VANCOMYCIN 1G 1.25 GM in 0.9% NACL 250ML 250 ML IV SCH ×2 (09:08→21:53)
[2020-03-06] MEDS: ASPIRIN 81MG CHEW TAB PO SCH (09:09)
[2020-03-06] MEDS: FAMOTIDINE 20MG VIAL IV SCH ×2 (09:09→21:14)
[2020-03-06] MEDS: FOLIC ACID 1 MG TABLET PO SCH (09:09)
[2020-03-06] MEDS: SOLU-MEDROL 40MG VIAL IVP SCH ×3 (09:09→23:56)
[2020-03-06] MEDS: ZINC SULFATE 220 CAPSULE PO SCH (09:09)
[2020-03-06] MEDS: ASCORBIC ACID 500 MG TAB PO SCH (09:09)
[2020-03-06] MEDS: ENOXAPARIN SODIUM 80 MG/0.8 ML SQ SCH (09:10)
[2020-03-06] MEDS: CHLORHEXIDINE GLUCONATE 473 ML MOUTHWASH MM SCH ×4 (09:10→21:23)
[2020-03-06] MEDS: LEVOFLOXACIN 750 MG/D5W 150 ML 150 ML IV SCH (09:10)
[2020-03-06] MEDS: INSULIN GLARGINE 100 UNITS/ML 10 ML VIAL SQ SCH (09:11)
[2020-03-06] MEDS: POTASSIUM CHLORIDE 20MEQ/100ML 100 ML IV PRN (10:24)
[2020-03-06] MEDS ORDERED: DIAZEPAM 5 MG/ML 2 ML SYG IVP SCH (14:00)
[2020-03-06] MEDS: METHADONE HCL 10 MG TABLET PO SCH (16:41)
[2020-03-06] MEDS: DIAZEPAM 5 MG TABLET GT SCH (21:15)
[2020-03-06] MEDS ORDERED: VANCOMYCIN 1G/250ML KIT 0 ML IV ONE (21:49)
[2020-03-06] MEDS: FENTANYL 2500MCG+NS 250ML 250 ML IV SCH (22:25)
[2020-03-07] VITALS (40 sets, daily range): BP systolic 97–148; BP diastolic 49–82
[2020-03-07] MEDS ORDERED: 0.9%NACL 10ML VIAL ONE (00:43)
[2020-03-07] MEDS: METHADONE HCL 10 MG TABLET PO SCH ×2 (00:45→13:55)
[2020-03-07] MEDS: CEFEPIME HCL 2 GM VIAL IVP SCH ×3 (00:45→16:45)
[2020-03-07 03:54] LABS: HEMATOCRIT 30.7 % (42-54); MEAN CORPUSCULAR HEMOGLOBIN 30.1 pg (27.0-33.0); MEAN CORPUSCULAR HGB CONC 33.2 g/dL (32.0-36.0); MEAN CORPUSCULAR VOLUME 90.6 fL (79-99); NUCLEATED RED BLOOD CELLS 0.2 % (0.0-0.19); RED BLOOD CELL COUNT(AUTO) 3.39 MIL/uL (4.50-6.20); RED CELL DISTRIBUTION WIDTH 15.3 % (11.0-15.5); WHITE BLOOD COUNT (AUTO) 10.8 K/uL (4.8-10.8)
[2020-03-07 04:00] LABS: CREATININE 0.5 mg/dL (0.5-1.5); POTASSIUM 3.9 mmol/L (3.5-5.1)
[2020-03-07] MEDS: DIAZEPAM 5 MG TABLET GT SCH ×3 (04:38→20:47)
[2020-03-07] MEDS: INSULIN HUMULIN R 100 UNIT/ML 3ML SQ SCH ×3 (05:44→18:24)
[2020-03-07 06:52] LABS: ABG BASE EXCESS 15.8 mmol/L (-2.0-3.0); ABG HCO3 45.3 mmol/L (21.0-28.0); ABG OXYGEN SATURATION 83.2 % (95.0-99.0); ABG PCO2 78 mmHg (35-48)
[2020-03-07] MEDS: MIDAZOLAM 100MG-0.9% NS 100ML 100 ML IV SCH (08:48)
[2020-03-07] MEDS: LEVOFLOXACIN 750 MG/D5W 150 ML 150 ML IV SCH (08:54)
[2020-03-07] MEDS: INSULIN GLARGINE 100 UNITS/ML 10 ML VIAL SQ SCH (08:57)
[2020-03-07] MEDS: SOLU-MEDROL 40MG VIAL IVP SCH ×2 (08:57→16:45)
[2020-03-07] MEDS: FAMOTIDINE 20MG VIAL IV SCH ×2 (08:58→20:47)
[2020-03-07] MEDS: FOLIC ACID 1 MG TABLET PO SCH (08:58)
[2020-03-07] MEDS: ZINC SULFATE 220 CAPSULE PO SCH (08:58)
[2020-03-07] MEDS: ASPIRIN 81MG CHEW TAB PO SCH (08:58)
[2020-03-07] MEDS: ENOXAPARIN SODIUM 80 MG/0.8 ML SQ SCH (08:59)
[2020-03-07] MEDS: VANCOMYCIN 1G 1.25 GM in 0.9% NACL 250ML 250 ML IV SCH ×2 (09:00→20:47)
[2020-03-07] MEDS: CHLORHEXIDINE GLUCONATE 473 ML MOUTHWASH MM SCH ×4 (09:01→22:42)
[2020-03-07] MEDS: ASCORBIC ACID 500 MG TAB PO SCH (11:26)
[2020-03-07] MEDS: FENTANYL 2500MCG+NS 250ML 250 ML IV SCH (12:42)
[2020-03-07] MEDS: MAGNESIUM HYDROXIDE 30 ML/UDCUP PO SCH ×2 (13:53→18:25)
[2020-03-08] VITALS (37 sets, daily range): BP systolic 97–184; BP diastolic 51–103
[2020-03-08] MEDS: SOLU-MEDROL 40MG VIAL IVP SCH ×3 (00:46→16:56)
[2020-03-08] MEDS: CEFEPIME HCL 2 GM VIAL IVP SCH ×3 (00:46→16:56)
[2020-03-08] MEDS: INSULIN HUMULIN R 100 UNIT/ML 3ML SQ SCH ×4 (00:56→17:59)
[2020-03-08] MEDS: MAGNESIUM HYDROXIDE 30 ML/UDCUP PO SCH ×5 (01:00→23:45)
[2020-03-08] MEDS: METHADONE HCL 10 MG TABLET PO SCH ×2 (03:09→16:56)
[2020-03-08] MEDS: FENTANYL 2500MCG+NS 250ML 250 ML IV SCH ×2 (03:17→12:39)
[2020-03-08 04:53] LABS: HEMATOCRIT 33.9 % (42-54); MEAN CORPUSCULAR HEMOGLOBIN 30.3 pg (27.0-33.0); MEAN CORPUSCULAR VOLUME 91.6 fL (79-99); NUCLEATED RED BLOOD CELLS 0.2 % (0.0-0.19); RED BLOOD CELL COUNT(AUTO) 3.7 MIL/uL (4.50-6.20); RED CELL DISTRIBUTION WIDTH 15.5 % (11.0-15.5); WHITE BLOOD COUNT (AUTO) 14.9 K/uL (4.8-10.8)
[2020-03-08 05:14] LABS: CREATININE 0.4 mg/dL (0.5-1.5); POTASSIUM 4.6 mmol/L (3.5-5.1)
[2020-03-08 06:52] LABS: ABG OXYGEN SATURATION 95.1 % (95.0-99.0); ABG PCO2 82 mmHg (35-48)
[2020-03-08] MEDS: FAMOTIDINE 20MG VIAL IV SCH ×2 (09:12→20:26)
[2020-03-08] MEDS: ENOXAPARIN SODIUM 80 MG/0.8 ML SQ SCH (09:12)
[2020-03-08] MEDS: FOLIC ACID 1 MG TABLET PO SCH (09:12)
[2020-03-08] MEDS: ZINC SULFATE 220 CAPSULE PO SCH (09:12)
[2020-03-08] MEDS: ASPIRIN 81MG CHEW TAB PO SCH (09:12)
[2020-03-08] MEDS: ASCORBIC ACID 500 MG TAB PO SCH (09:12)
[2020-03-08] MEDS: INSULIN GLARGINE 100 UNITS/ML 10 ML VIAL SQ SCH (09:31)
[2020-03-08] MEDS: LEVOFLOXACIN 750 MG/D5W 150 ML 150 ML IV SCH (09:34)
[2020-03-08] MEDS: CHLORHEXIDINE GLUCONATE 473 ML MOUTHWASH MM SCH ×4 (09:35→20:28)
[2020-03-08] MEDS: VANCOMYCIN 1G 1.25 GM in 0.9% NACL 250ML 250 ML IV SCH ×2 (10:21→20:27)
[2020-03-08] MEDS: DIAZEPAM 5 MG TABLET GT SCH ×2 (12:19→20:26)
[2020-03-09] VITALS (41 sets, daily range): BP systolic 97–153; BP diastolic 50–77
[2020-03-09] MEDS: SOLU-MEDROL 40MG VIAL IVP SCH ×3 (00:21→15:23)
[2020-03-09] MEDS: INSULIN HUMULIN R 100 UNIT/ML 3ML SQ SCH ×4 (00:24→17:49)
[2020-03-09] MEDS: MIDAZOLAM 100MG-0.9% NS 100ML 100 ML IV SCH ×2 (00:25→17:51)
[2020-03-09] MEDS: CEFEPIME HCL 2 GM VIAL IVP SCH ×3 (00:25→17:48)
[2020-03-09] MEDS: FENTANYL 2500MCG+NS 250ML 250 ML IV SCH ×2 (03:20→17:53)
[2020-03-09 04:54] LABS: HEMATOCRIT 31.7 % (42-54); MEAN CORPUSCULAR HEMOGLOBIN 30.2 pg (27.0-33.0); MEAN CORPUSCULAR HGB CONC 32.5 g/dL (32.0-36.0); RED BLOOD CELL COUNT(AUTO) 3.41 MIL/uL (4.50-6.20); RED CELL DISTRIBUTION WIDTH 15.9 % (11.0-15.5); WHITE BLOOD COUNT (AUTO) 13.5 K/uL (4.8-10.8)
[2020-03-09 05:05] LABS: CREATININE 0.5 mg/dL (0.5-1.5); POTASSIUM 4.7 mmol/L (3.5-5.1)
[2020-03-09] MEDS: MAGNESIUM HYDROXIDE 30 ML/UDCUP PO SCH ×4 (05:45→23:45)
[2020-03-09] MEDS: DIAZEPAM 5 MG TABLET GT SCH ×3 (05:50→21:23)
[2020-03-09] MEDS: METHADONE HCL 10 MG TABLET PO SCH ×2 (06:12→13:44)
[2020-03-09 07:05] LABS: ABG BASE EXCESS 16.3 mmol/L (-2.0-3.0); ABG HCO3 45.2 mmol/L (21.0-28.0); ABG PCO2 73 mmHg (35-48)
[2020-03-09] MEDS: VANCOMYCIN 1G 1.25 GM in 0.9% NACL 250ML 250 ML IV SCH ×2 (07:45→21:22)
[2020-03-09] MEDS: ASPIRIN 81MG CHEW TAB PO SCH (07:46)
[2020-03-09] MEDS: ZINC SULFATE 220 CAPSULE PO SCH (07:46)
[2020-03-09] MEDS: FAMOTIDINE 20MG VIAL IV SCH ×2 (07:46→21:22)
[2020-03-09] MEDS: FOLIC ACID 1 MG TABLET PO SCH (07:46)
[2020-03-09] MEDS: ASCORBIC ACID 500 MG TAB PO SCH (07:46)
[2020-03-09] MEDS: ENOXAPARIN SODIUM 80 MG/0.8 ML SQ SCH (07:48)
[2020-03-09] MEDS: LEVOFLOXACIN 750 MG/D5W 150 ML 150 ML IV SCH (07:48)
[2020-03-09] MEDS: INSULIN GLARGINE 100 UNITS/ML 10 ML VIAL SQ SCH (07:49)
[2020-03-09] MEDS: CHLORHEXIDINE GLUCONATE 473 ML MOUTHWASH MM SCH ×4 (07:52→21:23)
[2020-03-10] VITALS (34 sets, daily range): BP systolic 92–151; BP diastolic 46–91
[2020-03-10] MEDS: INSULIN HUMULIN R 100 UNIT/ML 3ML SQ SCH ×4 (00:56→18:16)
[2020-03-10] MEDS: METHADONE HCL 10 MG TABLET PO SCH ×2 (01:01→13:53)
[2020-03-10] MEDS: SOLU-MEDROL 40MG VIAL IVP SCH ×3 (01:01→15:30)
[2020-03-10] MEDS: CEFEPIME HCL 2 GM VIAL IVP SCH ×3 (01:01→18:13)
[2020-03-10 04:13] LABS: ABG BASE EXCESS 14.5 mmol/L (-2.0-3.0); ABG HCO3 44.4 mmol/L (21.0-28.0); ABG OXYGEN SATURATION 89.8 % (95.0-99.0); ABG PCO2 81 mmHg (35-48)
[2020-03-10 04:44] LABS: HEMATOCRIT 31.6 % (42-54); MEAN CORPUSCULAR HEMOGLOBIN 30.1 pg (27.0-33.0); MEAN CORPUSCULAR VOLUME 94.3 fL (79-99); RED BLOOD CELL COUNT(AUTO) 3.35 MIL/uL (4.50-6.20); RED CELL DISTRIBUTION WIDTH 16.4 % (11.0-15.5); WHITE BLOOD COUNT (AUTO) 12.7 K/uL (4.8-10.8)
[2020-03-10 05:04] LABS: CARBON DIOXIDE 42 mmol/L (21-32); CHLORIDE 100 mmol/L (101-111); CREATININE 0.4 mg/dL (0.5-1.5); GLOMERULAR FILTR. RATE CALC 227 mL/min (>60); GLUCOSE,RANDOM 231 mg/dL (70-105); LACTATE DEHYDROGENASE 342 U/L (81-234); POTASSIUM 4.8 mmol/L (3.5-5.1); SODIUM SERUM 138 mmol/L (136-145); UREA NITROGEN, BLOOD 29 mg/dL (7-18)
[2020-03-10 05:12] LABS: CRP QUANTITATIVE < 2.00 mg/L (0.00-9.0)
[2020-03-10] MEDS: MAGNESIUM HYDROXIDE 30 ML/UDCUP PO SCH ×3 (05:45→18:17)
[2020-03-10] MEDS: DIAZEPAM 5 MG TABLET GT SCH ×3 (05:59→20:22)
[2020-03-10] MEDS: LEVOFLOXACIN 750 MG/D5W 150 ML 150 ML IV SCH (08:55)
[2020-03-10] MEDS: ASPIRIN 81MG CHEW TAB PO SCH (08:55)
[2020-03-10] MEDS: ASCORBIC ACID 500 MG TAB PO SCH (08:56)
[2020-03-10] MEDS: FOLIC ACID 1 MG TABLET PO SCH (08:56)
[2020-03-10] MEDS: ZINC SULFATE 220 CAPSULE PO SCH (08:56)
[2020-03-10] MEDS: FAMOTIDINE 20MG VIAL IV SCH (08:56)
[2020-03-10] MEDS: ENOXAPARIN SODIUM 80 MG/0.8 ML SQ SCH (08:57)
[2020-03-10] MEDS: INSULIN GLARGINE 100 UNITS/ML 10 ML VIAL SQ SCH (09:00)
[2020-03-10] MEDS: FENTANYL 2500MCG+NS 250ML 250 ML IV SCH ×2 (09:01→22:46)
[2020-03-10] MEDS: CHLORHEXIDINE GLUCONATE 473 ML MOUTHWASH MM SCH ×4 (09:06→20:23)
[2020-03-10] MEDS ORDERED: VANCOMYCIN 1G 1.75 GM in 0.9% NACL 250ML 250 ML IV SCH (11:00)
[2020-03-10] MEDS ORDERED: 0.9% NACL 250ML 250 ML IV ONE (11:44)
[2020-03-10] MEDS: MIDAZOLAM 100MG-0.9% NS 100ML 100 ML IV SCH (15:30)
[2020-03-10] MEDS: VANCOMYCIN 1G 1.25 GM in 0.9% NACL 250ML 250 ML IV SCH (20:23)
[2020-03-11] VITALS (44 sets, daily range): BP systolic 90–174; BP diastolic 46–108
[2020-03-11] MEDS: MAGNESIUM HYDROXIDE 30 ML/UDCUP PO SCH ×5 (00:38→22:56)
[2020-03-11] MEDS: SOLU-MEDROL 40MG VIAL IVP SCH ×3 (00:38→16:04)
[2020-03-11] MEDS: CEFEPIME HCL 2 GM VIAL IVP SCH ×3 (00:38→16:04)
[2020-03-11] MEDS: METHADONE HCL 10 MG TABLET PO SCH (01:10)
[2020-03-11 04:28] LABS: HEMATOCRIT 32.1 % (42-54); MEAN CORPUSCULAR HEMOGLOBIN 30.5 pg (27.0-33.0); MEAN CORPUSCULAR VOLUME 92.5 fL (79-99); RED BLOOD CELL COUNT(AUTO) 3.47 MIL/uL (4.50-6.20); RED CELL DISTRIBUTION WIDTH 16.3 % (11.0-15.5); WHITE BLOOD COUNT (AUTO) 12.4 K/uL (4.8-10.8)
[2020-03-11 04:48] LABS: CREATININE 0.5 mg/dL (0.5-1.5); POTASSIUM 5.1 mmol/L (3.5-5.1)
[2020-03-11] MEDS: DIAZEPAM 5 MG TABLET GT SCH ×3 (05:37→20:29)
[2020-03-11 08:14] LABS: ABG BASE EXCESS 12.8 mmol/L (-2.0-3.0); ABG HCO3 41.7 mmol/L (21.0-28.0); ABG OXYGEN SATURATION 96.1 % (95.0-99.0); ABG PCO2 73 mmHg (35-48)
[2020-03-11] MEDS: LEVOFLOXACIN 750 MG/D5W 150 ML 150 ML IV SCH (08:55)
[2020-03-11] MEDS: ZINC SULFATE 220 CAPSULE PO SCH (08:55)
[2020-03-11] MEDS: INSULIN GLARGINE 100 UNITS/ML 10 ML VIAL SQ SCH (08:58)
[2020-03-11] MEDS: ENOXAPARIN SODIUM 80 MG/0.8 ML SQ SCH (08:59)
[2020-03-11] MEDS: CHLORHEXIDINE GLUCONATE 473 ML MOUTHWASH MM SCH ×4 (09:01→20:39)
[2020-03-11] MEDS: VANCOMYCIN 1G 1.25 GM in 0.9% NACL 250ML 250 ML IV SCH ×2 (09:05→20:31)
[2020-03-11] MEDS: FENTANYL 2500MCG+NS 250ML 250 ML IV SCH (11:04)
[2020-03-11] MEDS ORDERED: PROPOFOL 1000 MG/100 ML 100 ML IV ONE ×2 (11:27→13:13)
[2020-03-11] MEDS ORDERED: FUROSEMIDE 20MG VIAL IV SCH (17:05)
[2020-03-11] MEDS: DRONABINOL 2.5 MG CAP PO SCH (20:44)
[2020-03-11] MEDS: MIDAZOLAM 100MG-0.9% NS 100ML 100 ML IV SCH (22:59)
[2020-03-12] VITALS (31 sets, daily range): BP systolic 78–187; BP diastolic 43–97
[2020-03-12] MEDS: DIAZEPAM 5 MG TABLET GT SCH ×3 (04:45→20:10)
[2020-03-12] MEDS: MAGNESIUM HYDROXIDE 30 ML/UDCUP PO SCH ×4 (05:25→23:34)
[2020-03-12] MEDS ORDERED: PHARMACY COMMUNICATION MISC SCH (05:30)
[2020-03-12 05:53] LABS: HEMATOCRIT 36.8 % (42-54); MEAN CORPUSCULAR HEMOGLOBIN 30.6 pg (27.0-33.0); MEAN CORPUSCULAR HGB CONC 33.7 g/dL (32.0-36.0); MEAN CORPUSCULAR VOLUME 90.9 fL (79-99); RED BLOOD CELL COUNT(AUTO) 4.05 MIL/uL (4.50-6.20); RED CELL DISTRIBUTION WIDTH 15.7 % (11.0-15.5); WHITE BLOOD COUNT (AUTO) 13.1 K/uL (4.8-10.8)
[2020-03-12 06:18] LABS: CREATININE 0.4 mg/dL (0.5-1.5); CRP QUANTITATIVE 3.7 mg/L (0.00-9.0); POTASSIUM 4.6 mmol/L (3.5-5.1)
[2020-03-12 07:05] LABS: ABG BASE EXCESS 11.8 mmol/L (-2.0-3.0); ABG HCO3 37.6 mmol/L (21.0-28.0); ABG OXYGEN SATURATION 96.7 % (95.0-99.0); ABG PCO2 53 mmHg (35-48)
[2020-03-12] MEDS: SOLU-MEDROL 40MG VIAL IVP SCH ×4 (09:17→23:33)
[2020-03-12] MEDS: DRONABINOL 2.5 MG CAP PO SCH ×2 (09:18→20:10)
[2020-03-12] MEDS: ENOXAPARIN SODIUM 80 MG/0.8 ML SQ SCH (09:19)
[2020-03-12] MEDS: INSULIN GLARGINE 100 UNITS/ML 10 ML VIAL SQ SCH (09:22)
[2020-03-12] MEDS: ZINC SULFATE 220 CAPSULE PO SCH (09:23)
[2020-03-12] MEDS: CHLORHEXIDINE GLUCONATE 473 ML MOUTHWASH MM SCH ×4 (09:25→20:10)
[2020-03-12] MEDS ORDERED: PROPOFOL 1000 MG/100 ML 100 ML IV ONE (13:48)
[2020-03-12] MEDS ORDERED: PROPOFOL 1000 MG/100 ML IV PRN (23:30)
[2020-03-13] VITALS (29 sets, daily range): BP systolic 75–159; BP diastolic 43–95
[2020-03-13] MEDS: PROPOFOL 1000 MG/100 ML 100 ML IV SCH ×4 (02:22→20:20)
[2020-03-13 05:25] LABS: MEAN CORPUSCULAR HEMOGLOBIN 30.7 pg (27.0-33.0); MEAN CORPUSCULAR HGB CONC 34.7 g/dL (32.0-36.0); MEAN CORPUSCULAR VOLUME 88.5 fL (79-99); RED BLOOD CELL COUNT(AUTO) 3.84 MIL/uL (4.50-6.20); RED CELL DISTRIBUTION WIDTH 15.7 % (11.0-15.5); WHITE BLOOD COUNT (AUTO) 14.6 K/uL (4.8-10.8)
[2020-03-13] MEDS: MAGNESIUM HYDROXIDE 30 ML/UDCUP PO SCH ×4 (05:32→22:48)
[2020-03-13 06:02] LABS: CREATININE 0.3 mg/dL (0.5-1.5); POTASSIUM 4.4 mmol/L (3.5-5.1)
[2020-03-13] MEDS: DRONABINOL 2.5 MG CAP PO SCH ×2 (08:41→20:18)
[2020-03-13] MEDS: SOLU-MEDROL 40MG VIAL IVP SCH ×2 (08:41→15:48)
[2020-03-13] MEDS: ENOXAPARIN SODIUM 80 MG/0.8 ML SQ SCH (08:42)
[2020-03-13] MEDS: ZINC SULFATE 220 CAPSULE PO SCH (08:42)
[2020-03-13] MEDS: MIDAZOLAM 100MG-0.9% NS 100ML 100 ML IV SCH (08:48)
[2020-03-13] MEDS: INSULIN GLARGINE 100 UNITS/ML 10 ML VIAL SQ SCH (10:01)
[2020-03-13] MEDS: DIAZEPAM 5 MG TABLET GT SCH ×3 (11:52→20:18)
[2020-03-13] MEDS: CHLORHEXIDINE GLUCONATE 473 ML MOUTHWASH MM SCH ×4 (11:53→20:18)
[2020-03-14] VITALS (35 sets, daily range): BP systolic 73–181; BP diastolic 44–91
[2020-03-14] MEDS: PROPOFOL 1000 MG/100 ML 100 ML IV SCH ×4 (00:01→21:46)
[2020-03-14] MEDS: SOLU-MEDROL 40MG VIAL IVP SCH ×4 (00:01→23:54)
[2020-03-14] MEDS: MAGNESIUM HYDROXIDE 30 ML/UDCUP PO SCH ×4 (04:22→23:45)
[2020-03-14 04:26] LABS: ABG BASE EXCESS 11.1 mmol/L (-2.0-3.0); ABG HCO3 36.9 mmol/L (21.0-28.0); ABG OXYGEN SATURATION 96.9 % (95.0-99.0); ABG PCO2 52 mmHg (35-48)
[2020-03-14] MEDS: DIAZEPAM 5 MG TABLET GT SCH ×3 (04:53→21:29)
[2020-03-14 05:56] LABS: BASOPHILS % (AUTO) 0.2 % (0.0-5.0); HEMATOCRIT 32.5 % (42-54); LYMPHOCYTES % (AUTO) 1.9 % (21.0-51.0); MEAN CORPUSCULAR HEMOGLOBIN 30.3 pg (27.0-33.0); MEAN CORPUSCULAR HGB CONC 34.2 g/dL (32.0-36.0); MEAN CORPUSCULAR VOLUME 88.8 fL (79-99); MONOCYTES % (AUTO) 2.4 % (3.0-13.0); NEUTROPHILS % (AUTO) 94.1 % (40.0-77.0); PLATELET COUNT (AUTO) 122 K/uL (130-400); RED BLOOD CELL COUNT(AUTO) 3.66 MIL/uL (4.50-6.20); RED CELL DISTRIBUTION WIDTH 16.2 % (11.0-15.5); WHITE BLOOD COUNT (AUTO) 14.9 K/uL (4.8-10.8)
[2020-03-14 06:16] LABS: ALANINE AMINOTRANSFERASE 73 U/L (12-78); ASPARTATE AMINOTRANSFERASE 29 U/L (10-37); BILIRUBIN,TOTAL 0.5 mg/dL (0.2-1.0); CARBON DIOXIDE 39 mmol/L (21-32); CHLORIDE 98 mmol/L (101-111); CREATININE 0.3 mg/dL (0.5-1.5); GLOMERULAR FILTR. RATE CALC 316 mL/min (>60); GLUCOSE,RANDOM 220 mg/dL (70-105); PHOSPHORUS 3.2 mg/dL (2.5-4.9); POTASSIUM 4.2 mmol/L (3.5-5.1); SODIUM SERUM 138 mmol/L (136-145); TOTAL PROTEIN, SERUM 4.9 g/dL (6.0-8.3); UREA NITROGEN, BLOOD 21 mg/dL (7-18)
[2020-03-14] MEDS: ENOXAPARIN SODIUM 80 MG/0.8 ML SQ SCH (08:51)
[2020-03-14] MEDS: DRONABINOL 2.5 MG CAP PO SCH ×2 (08:52→21:30)
[2020-03-14] MEDS: ZINC SULFATE 220 CAPSULE PO SCH (08:52)
[2020-03-14] MEDS: CHLORHEXIDINE GLUCONATE 473 ML MOUTHWASH MM SCH ×4 (08:52→21:29)
[2020-03-14] MEDS: INSULIN GLARGINE 100 UNITS/ML 10 ML VIAL SQ SCH (08:54)
[2020-03-14] MEDS: MIDAZOLAM 100MG-0.9% NS 100ML 100 ML IV SCH (12:51)
[2020-03-14] MEDS ORDERED: CEFAZOLIN SODIUM 1 GM VIAL IVP SCH (16:00)
[2020-03-14 23:50] LABS: HEMATOCRIT 32.2 % (42-54)
[2020-03-15] VITALS (24 sets, daily range): BP systolic 103–166; BP diastolic 50–100
[2020-03-15] MEDS: PROPOFOL 1000 MG/100 ML 100 ML IV SCH ×3 (04:42→21:50)
[2020-03-15] MEDS: DIAZEPAM 5 MG TABLET GT SCH ×3 (04:45→21:19)
[2020-03-15] MEDS: MAGNESIUM HYDROXIDE 30 ML/UDCUP PO SCH ×3 (06:27→18:23)
[2020-03-15] MEDS: CHLORHEXIDINE GLUCONATE 473 ML MOUTHWASH MM SCH ×4 (08:29→21:20)
[2020-03-15] MEDS: SOLU-MEDROL 40MG VIAL IVP SCH ×2 (08:29→16:01)
[2020-03-15] MEDS: DRONABINOL 2.5 MG CAP PO SCH ×2 (08:30→21:19)
[2020-03-15] MEDS: ENOXAPARIN SODIUM 80 MG/0.8 ML SQ SCH (08:30)
[2020-03-15] MEDS: INSULIN GLARGINE 100 UNITS/ML 10 ML VIAL SQ SCH (08:31)
[2020-03-15 14:49] LABS: ABG BASE EXCESS 10.3 mmol/L (-2.0-3.0); ABG HCO3 36.6 mmol/L (21.0-28.0); ABG OXYGEN SATURATION 88.6 % (95.0-99.0); ABG PCO2 57 mmHg (35-48)
[2020-03-15] MEDS: MIDAZOLAM 100MG-0.9% NS 100ML 100 ML IV SCH (18:33)
[2020-03-16] VITALS (28 sets, daily range): BP systolic 123–158; BP diastolic 58–105
[2020-03-16] MEDS: MAGNESIUM HYDROXIDE 30 ML/UDCUP PO SCH ×4 (00:33→16:31)
[2020-03-16] MEDS: SOLU-MEDROL 40MG VIAL IVP SCH ×3 (00:33→16:30)
[2020-03-16 04:11] LABS: MEAN CORPUSCULAR HEMOGLOBIN 30.6 pg (27.0-33.0); MEAN CORPUSCULAR HGB CONC 34.5 g/dL (32.0-36.0); MEAN CORPUSCULAR VOLUME 88.7 fL (79-99); RED BLOOD CELL COUNT(AUTO) 3.27 MIL/uL (4.50-6.20); RED CELL DISTRIBUTION WIDTH 16.4 % (11.0-15.5); WHITE BLOOD COUNT (AUTO) 13.3 K/uL (4.8-10.8)
[2020-03-16 04:24] LABS: CREATININE 0.3 mg/dL (0.5-1.5); POTASSIUM 3.8 mmol/L (3.5-5.1)
[2020-03-16] MEDS: PROPOFOL 1000 MG/100 ML 100 ML IV SCH ×4 (04:24→17:50)
[2020-03-16] MEDS: DIAZEPAM 5 MG TABLET GT SCH ×3 (05:36→20:29)
[2020-03-16] MEDS: DRONABINOL 2.5 MG CAP PO SCH ×2 (08:53→20:29)
[2020-03-16] MEDS: ENOXAPARIN SODIUM 80 MG/0.8 ML SQ SCH (08:54)
[2020-03-16] MEDS: CHLORHEXIDINE GLUCONATE 473 ML MOUTHWASH MM SCH ×4 (08:54→20:30)
[2020-03-16] MEDS: INSULIN GLARGINE 100 UNITS/ML 10 ML VIAL SQ SCH (08:59)
[2020-03-17] VITALS (23 sets, daily range): BP systolic 106–175; BP diastolic 60–89
[2020-03-17 03:25] LABS: ABG BASE EXCESS 6.1 mmol/L (-2.0-3.0); ABG HCO3 30.7 mmol/L (21.0-28.0); ABG PCO2 44 mmHg (35-48)
[2020-03-17] MEDS: DIAZEPAM 5 MG TABLET GT SCH ×3 (04:56→21:05)
[2020-03-17] MEDS: MAGNESIUM HYDROXIDE 30 ML/UDCUP PO SCH ×5 (04:56→22:33)
[2020-03-17 05:58] LABS: BASOPHILS % (AUTO) 0.1 % (0.0-5.0); HEMATOCRIT 28.4 % (42-54); LYMPHOCYTES % (AUTO) 1.6 % (21.0-51.0); MEAN CORPUSCULAR HEMOGLOBIN 31.1 pg (27.0-33.0); MEAN CORPUSCULAR HGB CONC 34.9 g/dL (32.0-36.0); MEAN CORPUSCULAR VOLUME 89.3 fL (79-99); MONOCYTES % (AUTO) 1.7 % (3.0-13.0); NEUTROPHILS % (AUTO) 95.3 % (40.0-77.0); PLATELET COUNT (AUTO) 119 K/uL (130-400); RED BLOOD CELL COUNT(AUTO) 3.18 MIL/uL (4.50-6.20); RED CELL DISTRIBUTION WIDTH 16.7 % (11.0-15.5); WHITE BLOOD COUNT (AUTO) 16.7 K/uL (4.8-10.8)
[2020-03-17 06:18] LABS: CREATININE 0.3 mg/dL (0.5-1.5); POTASSIUM 4.1 mmol/L (3.5-5.1)
[2020-03-17] MEDS: SOLU-MEDROL 40MG VIAL IVP SCH ×4 (08:39→23:38)
[2020-03-17] MEDS: ENOXAPARIN SODIUM 80 MG/0.8 ML SQ SCH (08:40)
[2020-03-17] MEDS: CHLORHEXIDINE GLUCONATE 473 ML MOUTHWASH MM SCH ×4 (08:43→21:07)
[2020-03-17] MEDS: DRONABINOL 2.5 MG CAP PO SCH ×2 (08:43→21:05)
[2020-03-17] MEDS: INSULIN GLARGINE 100 UNITS/ML 10 ML VIAL SQ SCH (09:50)
[2020-03-17] MEDS: PROPOFOL 1000 MG/100 ML 100 ML IV SCH ×2 (12:21→23:39)
[2020-03-17] MEDS: MIDAZOLAM 100MG-0.9% NS 100ML 100 ML IV SCH (12:22)
[2020-03-18] VITALS (21 sets, daily range): BP systolic 123–149; BP diastolic 58–79
[2020-03-18 04:35] LABS: HEMATOCRIT 25.1 % (42-54); MEAN CORPUSCULAR HEMOGLOBIN 31.4 pg (27.0-33.0); MEAN CORPUSCULAR HGB CONC 34.7 g/dL (32.0-36.0); MEAN CORPUSCULAR VOLUME 90.6 fL (79-99); RED BLOOD CELL COUNT(AUTO) 2.77 MIL/uL (4.50-6.20); RED CELL DISTRIBUTION WIDTH 17.6 % (11.0-15.5); WHITE BLOOD COUNT (AUTO) 11.8 K/uL (4.8-10.8)
[2020-03-18] MEDS: DIAZEPAM 5 MG TABLET GT SCH ×3 (04:38→21:37)
[2020-03-18] MEDS: PROPOFOL 1000 MG/100 ML 100 ML IV SCH ×3 (05:31→20:37)
[2020-03-18] MEDS: MAGNESIUM HYDROXIDE 30 ML/UDCUP PO SCH ×2 (05:39→10:50)
[2020-03-18 08:06] LABS: ALBUMIN 1.9 g/dL (3.5-5.0); BILIRUBIN,TOTAL 0.3 mg/dL (0.2-1.0); CREATININE 0.3 mg/dL (0.5-1.5); MAGNESIUM 2.5 mg/dL (1.80-2.40); PHOSPHORUS 3.4 mg/dL (2.5-4.9); POTASSIUM 4.2 mmol/L (3.5-5.1); TOTAL PROTEIN, SERUM 4.2 g/dL (6.0-8.3)
[2020-03-18] MEDS: CHLORHEXIDINE GLUCONATE 473 ML MOUTHWASH MM SCH ×4 (08:39→21:38)
[2020-03-18] MEDS: SOLU-MEDROL 40MG VIAL IVP SCH ×3 (08:41→23:58)
[2020-03-18] MEDS: DRONABINOL 2.5 MG CAP PO SCH (08:41)
[2020-03-18] MEDS: INSULIN GLARGINE 100 UNITS/ML 10 ML VIAL SQ SCH (08:52)
[2020-03-18] MEDS: MIDAZOLAM 100MG-0.9% NS 100ML 100 ML IV SCH (16:19)
[2020-03-18] MEDS ORDERED: MAGNESIUM HYDROXIDE 30 ML/UDCUP PO PRN (20:00)
[2020-03-19] VITALS (21 sets, daily range): BP systolic 113–154; BP diastolic 55–86
[2020-03-19] MEDS: PROPOFOL 1000 MG/100 ML 100 ML IV SCH ×3 (01:51→17:30)
[2020-03-19 04:14] LABS: BASOPHILS % (AUTO) 0.1 % (0.0-5.0); EOSINOPHILS % (AUTO) 0.1 % (0.0-8.0); HEMATOCRIT 23.2 % (42-54); LYMPHOCYTES % (AUTO) 1.4 % (21.0-51.0); MEAN CORPUSCULAR HGB CONC 33.6 g/dL (32.0-36.0); MEAN CORPUSCULAR VOLUME 92.1 fL (79-99); MONOCYTES % (AUTO) 1.3 % (3.0-13.0); NEUTROPHILS % (AUTO) 96.1 % (40.0-77.0); PLATELET COUNT (AUTO) 90 K/uL (130-400); RED BLOOD CELL COUNT(AUTO) 2.52 MIL/uL (4.50-6.20); RED CELL DISTRIBUTION WIDTH 17.9 % (11.0-15.5); WHITE BLOOD COUNT (AUTO) 13.5 K/uL (4.8-10.8)
[2020-03-19] MEDS: DIAZEPAM 5 MG TABLET GT SCH ×3 (04:27→20:11)
[2020-03-19] MEDS: MIDAZOLAM 100MG-0.9% NS 100ML 100 ML IV SCH ×2 (05:04→20:33)
[2020-03-19] MEDS: ENOXAPARIN SODIUM 30 MG/0.3 ML SQ SCH (09:00)
[2020-03-19] MEDS: SOLU-MEDROL 40MG VIAL IVP SCH ×2 (09:29→20:12)
[2020-03-19] MEDS: CHLORHEXIDINE GLUCONATE 473 ML MOUTHWASH MM SCH ×4 (09:33→20:12)
[2020-03-19] MEDS: INSULIN GLARGINE 100 UNITS/ML 10 ML VIAL SQ SCH (09:53)
[2020-03-20] VITALS (24 sets, daily range): BP systolic 119–165; BP diastolic 56–89
[2020-03-20] MEDS: PROPOFOL 1000 MG/100 ML 100 ML IV SCH ×4 (00:36→21:42)
[2020-03-20] MEDS: DIAZEPAM 5 MG TABLET GT SCH ×3 (04:18→21:44)
[2020-03-20 04:58] LABS: ABG PCO2 53 mmHg (35-48)
[2020-03-20 05:09] LABS: BASOPHILS % (AUTO) 0.1 % (0.0-5.0); EOSINOPHILS % (AUTO) 0.1 % (0.0-8.0); HEMATOCRIT 24.2 % (42-54); LYMPHOCYTES % (AUTO) 3.5 % (21.0-51.0); MEAN CORPUSCULAR HEMOGLOBIN 30.3 pg (27.0-33.0); MEAN CORPUSCULAR HGB CONC 32.6 g/dL (32.0-36.0); MEAN CORPUSCULAR VOLUME 92.7 fL (79-99); MONOCYTES % (AUTO) 1.4 % (3.0-13.0); NEUTROPHILS % (AUTO) 94.1 % (40.0-77.0); PLATELET COUNT (AUTO) 92 K/uL (130-400); RED BLOOD CELL COUNT(AUTO) 2.61 MIL/uL (4.50-6.20); RED CELL DISTRIBUTION WIDTH 18.1 % (11.0-15.5); WHITE BLOOD COUNT (AUTO) 9.5 K/uL (4.8-10.8)
[2020-03-20 05:26] LABS: CREATININE 0.2 mg/dL (0.5-1.5); POTASSIUM 4.4 mmol/L (3.5-5.1)
[2020-03-20] MEDS: SOLU-MEDROL 40MG VIAL IVP SCH ×2 (08:40→21:44)
[2020-03-20] MEDS: ENOXAPARIN SODIUM 30 MG/0.3 ML SQ SCH (08:41)
[2020-03-20] MEDS: INSULIN GLARGINE 100 UNITS/ML 10 ML VIAL SQ SCH (08:43)
[2020-03-20] MEDS: CHLORHEXIDINE GLUCONATE 473 ML MOUTHWASH MM SCH ×4 (08:43→21:44)
[2020-03-20] MEDS: MIDAZOLAM 100MG-0.9% NS 100ML 100 ML IV SCH (10:27)
[2020-03-21] VITALS (18 sets, daily range): BP systolic 133–168; BP diastolic 59–81
[2020-03-21] MEDS: MIDAZOLAM 100MG-0.9% NS 100ML 100 ML IV SCH ×2 (00:13→12:48)
[2020-03-21 03:21] LABS: ABG BASE EXCESS 10.4 mmol/L (-2.0-3.0); ABG HCO3 37.9 mmol/L (21.0-28.0); ABG OXYGEN SATURATION 96.6 % (95.0-99.0); ABG PCO2 62 mmHg (35-48)
[2020-03-21] MEDS: DIAZEPAM 5 MG TABLET GT SCH ×3 (04:36→21:46)
[2020-03-21 05:59] LABS: BASOPHILS % (AUTO) 0.1 % (0.0-5.0); HEMATOCRIT 24.1 % (42-54); LYMPHOCYTES % (AUTO) 3.4 % (21.0-51.0); MEAN CORPUSCULAR HEMOGLOBIN 30.6 pg (27.0-33.0); MEAN CORPUSCULAR HGB CONC 32.8 g/dL (32.0-36.0); MEAN CORPUSCULAR VOLUME 93.4 fL (79-99); MONOCYTES % (AUTO) 1.6 % (3.0-13.0); NEUTROPHILS % (AUTO) 93.8 % (40.0-77.0); PLATELET COUNT (AUTO) 95 K/uL (130-400); RED BLOOD CELL COUNT(AUTO) 2.58 MIL/uL (4.50-6.20); RED CELL DISTRIBUTION WIDTH 18.5 % (11.0-15.5); WHITE BLOOD COUNT (AUTO) 10.1 K/uL (4.8-10.8)
[2020-03-21 06:22] LABS: ALBUMIN 1.7 g/dL (3.5-5.0); BILIRUBIN,TOTAL 0.4 mg/dL (0.2-1.0); CREATININE 0.2 mg/dL (0.5-1.5); POTASSIUM 4.2 mmol/L (3.5-5.1); TOTAL PROTEIN, SERUM 4.6 g/dL (6.0-8.3)
[2020-03-21] MEDS: SOLU-MEDROL 40MG VIAL IVP SCH ×2 (09:16→21:42)
[2020-03-21] MEDS: CHLORHEXIDINE GLUCONATE 473 ML MOUTHWASH MM SCH ×4 (09:17→21:44)
[2020-03-21] MEDS: ENOXAPARIN SODIUM 30 MG/0.3 ML SQ SCH (09:17)
[2020-03-21] MEDS: INSULIN GLARGINE 100 UNITS/ML 10 ML VIAL SQ SCH (09:58)
[2020-03-21] MEDS ORDERED: ARTIFICAL TEARS SOL 15 ML OU PRN (10:15)
[2020-03-21] MEDS: PROPOFOL 1000 MG/100 ML 100 ML IV SCH ×2 (10:43→17:25)
[2020-03-21] MEDS: BALSAM PERU/CASTOR OIL 60 GM TUBE TP SCH (21:43)
[2020-03-22] VITALS (23 sets, daily range): BP systolic 112–162; BP diastolic 48–94
[2020-03-22] MEDS: MIDAZOLAM 100MG-0.9% NS 100ML 100 ML IV SCH ×2 (01:45→16:00)
[2020-03-22] MEDS: PROPOFOL 1000 MG/100 ML 100 ML IV SCH ×3 (01:46→17:17)
[2020-03-22] MEDS: DIAZEPAM 5 MG TABLET GT SCH ×3 (04:52→21:40)
[2020-03-22 06:14] LABS: HEMATOCRIT 23.9 % (42-54); MEAN CORPUSCULAR HEMOGLOBIN 31.6 pg (27.0-33.0); MEAN CORPUSCULAR HGB CONC 33.9 g/dL (32.0-36.0); MEAN CORPUSCULAR VOLUME 93.4 fL (79-99); RED BLOOD CELL COUNT(AUTO) 2.56 MIL/uL (4.50-6.20); RED CELL DISTRIBUTION WIDTH 18.2 % (11.0-15.5); WHITE BLOOD COUNT (AUTO) 8.7 K/uL (4.8-10.8)
[2020-03-22 06:22] LABS: CREATININE 0.3 mg/dL (0.5-1.5); POTASSIUM 4.3 mmol/L (3.5-5.1)
[2020-03-22 06:36] LABS: INR 0.98 (0.85-1.15); PROTHROMBIN TIME 10.5 SEC (9.6-11.6)
[2020-03-22 06:37] LABS: PARTIAL THROMBOPLASTIN TIME 28.2 SEC (26.3-35.5)
[2020-03-22 06:48] LABS: ABG BASE EXCESS 8.6 mmol/L (-2.0-3.0); ABG HCO3 35.4 mmol/L (21.0-28.0); ABG OXYGEN SATURATION 94.4 % (95.0-99.0); ABG PCO2 57 mmHg (35-48)
[2020-03-22] MEDS: LIDOCAINE 1%-EPI 1:100,000 20 ML VIAL IJ SCH ×2 (07:15→08:10)
[2020-03-22] MEDS ORDERED: 0.9%NACL 1000ML 1,000 ML IV ONE (07:50)
[2020-03-22] MEDS ORDERED: ROCURONIUM 10MG/1ML SYR 10 MG/ML ML ONE (08:11)
[2020-03-22] MEDS ORDERED: FENTANYL CITRATE PF 50 MCG/1 ML 2ML VIAL ONE (08:11)
[2020-03-22] MEDS: CHLORHEXIDINE GLUCONATE 473 ML MOUTHWASH MM SCH ×4 (09:10→21:41)
[2020-03-22] MEDS: SOLU-MEDROL 40MG VIAL IVP SCH ×2 (09:10→21:40)
[2020-03-22] MEDS: ENOXAPARIN SODIUM 30 MG/0.3 ML SQ SCH (09:11)
[2020-03-22] MEDS: BALSAM PERU/CASTOR OIL 60 GM TUBE TP SCH ×2 (09:11→21:42)
[2020-03-22] MEDS ORDERED: FUROSEMIDE 20MG VIAL IV SCH (11:45)
[2020-03-22] MEDS: FUROSEMIDE 20MG VIAL IV SCH (11:49)
[2020-03-22] MEDS: INSULIN GLARGINE 100 UNITS/ML 10 ML VIAL SQ SCH (12:06)
[2020-03-23] VITALS (27 sets, daily range): BP systolic 102–142; BP diastolic 57–75
[2020-03-23] MEDS: FUROSEMIDE 20MG VIAL IV SCH ×3 (00:43→23:51)
[2020-03-23] MEDS: PROPOFOL 1000 MG/100 ML 100 ML IV SCH ×3 (03:55→17:28)
[2020-03-23] MEDS: DIAZEPAM 5 MG TABLET GT SCH ×3 (04:24→20:21)
[2020-03-23] MEDS: MIDAZOLAM 100MG-0.9% NS 100ML 100 ML IV SCH ×2 (06:51→17:25)
[2020-03-23] MEDS: ENOXAPARIN SODIUM 30 MG/0.3 ML SQ SCH (08:58)
[2020-03-23] MEDS: SOLU-MEDROL 40MG VIAL IVP SCH ×2 (08:58→20:22)
[2020-03-23] MEDS: CHLORHEXIDINE GLUCONATE 473 ML MOUTHWASH MM SCH ×4 (09:01→20:22)
[2020-03-23] MEDS: INSULIN GLARGINE 100 UNITS/ML 10 ML VIAL SQ SCH (09:01)
[2020-03-23] MEDS: BALSAM PERU/CASTOR OIL 60 GM TUBE TP SCH ×2 (09:01→21:01)
[2020-03-23 10:52] LABS: BASOPHILS % (AUTO) 0.1 % (0.0-5.0); EOSINOPHILS % (AUTO) 2.1 % (0.0-8.0); HEMATOCRIT 24.2 % (42-54); LYMPHOCYTES % (AUTO) 2.7 % (21.0-51.0); MEAN CORPUSCULAR HEMOGLOBIN 30.7 pg (27.0-33.0); MEAN CORPUSCULAR HGB CONC 32.6 g/dL (32.0-36.0); MEAN CORPUSCULAR VOLUME 94.2 fL (79-99); MONOCYTES % (AUTO) 0.9 % (3.0-13.0); NEUTROPHILS % (AUTO) 93.8 % (40.0-77.0); PLATELET COUNT (AUTO) 74 K/uL (130-400); RED BLOOD CELL COUNT(AUTO) 2.57 MIL/uL (4.50-6.20); RED CELL DISTRIBUTION WIDTH 18.6 % (11.0-15.5); WHITE BLOOD COUNT (AUTO) 7.8 K/uL (4.8-10.8)
[2020-03-23 10:57] LABS: CREATININE 0.3 mg/dL (0.5-1.5); POTASSIUM 3.8 mmol/L (3.5-5.1)
[2020-03-24] VITALS (32 sets, daily range): BP systolic 107–144; BP diastolic 56–88
[2020-03-24] MEDS: PROPOFOL 1000 MG/100 ML 100 ML IV SCH ×3 (02:29→18:11)
[2020-03-24] MEDS: DIAZEPAM 5 MG TABLET GT SCH ×3 (04:39→22:23)
[2020-03-24 04:52] LABS: HEMATOCRIT 23.4 % (42-54); MEAN CORPUSCULAR HEMOGLOBIN 31.2 pg (27.0-33.0); MEAN CORPUSCULAR HGB CONC 33.3 g/dL (32.0-36.0); MEAN CORPUSCULAR VOLUME 93.6 fL (79-99); PLATELET COUNT (AUTO) 62 K/uL (130-400); RED CELL DISTRIBUTION WIDTH 19.1 % (11.0-15.5); WHITE BLOOD COUNT (AUTO) 6.1 K/uL (4.8-10.8)
[2020-03-24 05:09] LABS: CREATININE 0.4 mg/dL (0.5-1.5); POTASSIUM 3.4 mmol/L (3.5-5.1)
[2020-03-24 06:02] LABS: PLATELET MORPHOLOGY COMMENT LARGE PLTS PRESENT
[2020-03-24] MEDS ORDERED: NS-20 MEQ KCL 1000ML 1,000 ML IV SCH (06:15)
[2020-03-24] MEDS: POTASSIUM CHLORIDE 20MEQ/100ML 100 ML IV PRN (06:21)
[2020-03-24] MEDS: MIDAZOLAM 100MG-0.9% NS 100ML 100 ML IV SCH ×2 (06:22→22:25)
[2020-03-24 07:15] LABS: ABG BASE EXCESS 11.2 mmol/L (-2.0-3.0); ABG HCO3 38.9 mmol/L (21.0-28.0); ABG PCO2 64 mmHg (35-48)
[2020-03-24] MEDS: BALSAM PERU/CASTOR OIL 60 GM TUBE TP SCH ×2 (08:29→21:00)
[2020-03-24] MEDS: CHLORHEXIDINE GLUCONATE 473 ML MOUTHWASH MM SCH ×4 (08:29→21:00)
[2020-03-24] MEDS: ENOXAPARIN SODIUM 30 MG/0.3 ML SQ SCH (08:40)
[2020-03-24] MEDS: SOLU-MEDROL 40MG VIAL IVP SCH ×2 (08:40→22:24)
[2020-03-24] MEDS: INSULIN GLARGINE 100 UNITS/ML 10 ML VIAL SQ SCH (08:41)
[2020-03-24] MEDS: FUROSEMIDE 20MG VIAL IV SCH ×2 (10:48→22:24)
[2020-03-25] VITALS (30 sets, daily range): BP systolic 87–142; BP diastolic 47–73
[2020-03-25] MEDS: PROPOFOL 1000 MG/100 ML 100 ML IV SCH ×2 (02:26→09:39)
[2020-03-25] MEDS: DIAZEPAM 5 MG TABLET GT SCH ×3 (05:10→21:34)
[2020-03-25 07:59] LABS: ABG BASE EXCESS 10.3 mmol/L (-2.0-3.0); ABG HCO3 39.4 mmol/L (21.0-28.0); ABG OXYGEN SATURATION 93.8 % (95.0-99.0); ABG PCO2 74 mmHg (35-48)
[2020-03-25] MEDS: ENOXAPARIN SODIUM 30 MG/0.3 ML SQ SCH (09:06)
[2020-03-25] MEDS: SOLU-MEDROL 40MG VIAL IVP SCH ×2 (09:06→21:33)
[2020-03-25] MEDS: CHLORHEXIDINE GLUCONATE 473 ML MOUTHWASH MM SCH ×4 (09:07→21:00)
[2020-03-25] MEDS: BALSAM PERU/CASTOR OIL 60 GM TUBE TP SCH ×2 (09:07→21:00)
[2020-03-25] MEDS: INSULIN GLARGINE 100 UNITS/ML 10 ML VIAL SQ SCH (09:10)
[2020-03-25 10:27] LABS: HEMATOCRIT 24.4 % (42-54); LYMPHOCYTES % (AUTO) 9.3 % (21.0-51.0); MEAN CORPUSCULAR HEMOGLOBIN 31.6 pg (27.0-33.0); MEAN CORPUSCULAR HGB CONC 33.2 g/dL (32.0-36.0); MEAN CORPUSCULAR VOLUME 95.3 fL (79-99); MONOCYTES % (AUTO) 1.7 % (3.0-13.0); NEUTROPHILS % (AUTO) 88.6 % (40.0-77.0); PLATELET COUNT (AUTO) 48 K/uL (130-400); RED BLOOD CELL COUNT(AUTO) 2.56 MIL/uL (4.50-6.20); RED CELL DISTRIBUTION WIDTH 19.3 % (11.0-15.5); WHITE BLOOD COUNT (AUTO) 2.4 K/uL (4.8-10.8)
[2020-03-25 10:45] LABS: ALBUMIN 1.3 g/dL (3.5-5.0); BILIRUBIN,TOTAL 0.4 mg/dL (0.2-1.0); CREATININE 0.3 mg/dL (0.5-1.5); MAGNESIUM 2.1 mg/dL (1.80-2.40); PHOSPHORUS 3.8 mg/dL (2.5-4.9); POTASSIUM 3.8 mmol/L (3.5-5.1); TOTAL PROTEIN, SERUM 4.7 g/dL (6.0-8.3)
[2020-03-25] MEDS: FUROSEMIDE 20MG VIAL IV SCH (11:37)
[2020-03-25] MEDS: POTASSIUM CHLORIDE 20MEQ/100ML 100 ML IV SCH (11:40)
[2020-03-25 11:56] LABS: BAND NEUTROPHILS % (MANUAL) 28 % (0-2); LYMPHOCYTES % (MANUAL) 8 % (22-44); MAN.DIFF COMMENT-IMPRESSION MANUAL DIFFERENTIAL; MONOCYTES % (MANUAL) 3 % (2-9); PLATELET MORPHOLOGY COMMENT MARKED DECREASE; SEGMENTED NEUTROPHILS % 61 % (40-70)
[2020-03-25] MEDS: INSULIN HUMULIN R 100 UNIT/ML 3ML SQ SCH (17:40)
[2020-03-25] MEDS: MIDAZOLAM 100MG-0.9% NS 100ML 100 ML IV SCH (18:07)
[2020-03-26] VITALS (38 sets, daily range): BP systolic 105–156; BP diastolic 52–81
[2020-03-26] MEDS: FUROSEMIDE 20MG VIAL IV SCH ×3 (00:39→22:55)
[2020-03-26] MEDS: PROPOFOL 1000 MG/100 ML 100 ML IV SCH ×2 (00:40→17:02)
[2020-03-26] MEDS: INSULIN HUMULIN R 100 UNIT/ML 3ML SQ SCH ×4 (00:41→17:11)
[2020-03-26] MEDS: DIAZEPAM 5 MG TABLET GT SCH ×3 (04:22→22:55)
[2020-03-26 05:31] LABS: HEMATOCRIT 25.8 % (42-54); LYMPHOCYTES % (AUTO) 7.9 % (21.0-51.0); MEAN CORPUSCULAR HGB CONC 32.6 g/dL (32.0-36.0); MEAN CORPUSCULAR VOLUME 95.2 fL (79-99); MONOCYTES % (AUTO) 2.3 % (3.0-13.0); NEUTROPHILS % (AUTO) 88.3 % (40.0-77.0); NUCLEATED RED BLOOD CELLS 1.5 % (0.0-0.19); PLATELET COUNT (AUTO) 46 K/uL (130-400); RED BLOOD CELL COUNT(AUTO) 2.71 MIL/uL (4.50-6.20); RED CELL DISTRIBUTION WIDTH 19.8 % (11.0-15.5); WHITE BLOOD COUNT (AUTO) 2.7 K/uL (4.8-10.8)
[2020-03-26 06:02] LABS: ALBUMIN 1.4 g/dL (3.5-5.0); BILIRUBIN,TOTAL 0.4 mg/dL (0.2-1.0); CREATININE 0.3 mg/dL (0.5-1.5); MAGNESIUM 2.3 mg/dL (1.80-2.40); PHOSPHORUS 2.7 mg/dL (2.5-4.9); POTASSIUM 3.6 mmol/L (3.5-5.1); TOTAL PROTEIN, SERUM 4.9 g/dL (6.0-8.3)
[2020-03-26] MEDS: SOLU-MEDROL 40MG VIAL IVP SCH ×2 (08:02→22:55)
[2020-03-26] MEDS: POTASSIUM CHLORIDE 20MEQ/100ML 100 ML IV SCH (08:03)
[2020-03-26] MEDS: INSULIN GLARGINE 100 UNITS/ML 10 ML VIAL SQ SCH (08:11)
[2020-03-26] MEDS: BALSAM PERU/CASTOR OIL 60 GM TUBE TP SCH ×2 (08:12→21:00)
[2020-03-26] MEDS: CHLORHEXIDINE GLUCONATE 473 ML MOUTHWASH MM SCH ×4 (08:12→21:00)
[2020-03-26] MEDS: ENOXAPARIN SODIUM 30 MG/0.3 ML SQ SCH (08:55)
[2020-03-26] MEDS: MIDAZOLAM 100MG-0.9% NS 100ML 100 ML IV SCH (17:02)
[2020-03-27] VITALS (40 sets, daily range): BP systolic 98–135; BP diastolic 47–67
[2020-03-27] MEDS: INSULIN HUMULIN R 100 UNIT/ML 3ML SQ SCH ×4 (01:15→17:59)
[2020-03-27] MEDS: PROPOFOL 1000 MG/100 ML 100 ML IV SCH ×3 (03:49→16:37)
[2020-03-27] MEDS: DIAZEPAM 5 MG TABLET GT SCH ×3 (03:50→22:18)
[2020-03-27 04:45] LABS: BASOPHILS % (AUTO) 0.5 % (0.0-5.0); EOSINOPHILS % (AUTO) 34.3 % (0.0-8.0); HEMATOCRIT 26.5 % (42-54); MEAN CORPUSCULAR HEMOGLOBIN 31.4 pg (27.0-33.0); MEAN CORPUSCULAR HGB CONC 32.1 g/dL (32.0-36.0); MEAN CORPUSCULAR VOLUME 97.8 fL (79-99); MONOCYTES % (AUTO) 2.9 % (3.0-13.0); NEUTROPHILS % (AUTO) 43.5 % (40.0-77.0); NUCLEATED RED BLOOD CELLS 4.8 % (0.0-0.19); PLATELET COUNT (AUTO) 39 K/uL (130-400); RED BLOOD CELL COUNT(AUTO) 2.71 MIL/uL (4.50-6.20); RED CELL DISTRIBUTION WIDTH 20.2 % (11.0-15.5); WHITE BLOOD COUNT (AUTO) 2.1 K/uL (4.8-10.8)
[2020-03-27 05:00] LABS: ALBUMIN 1.2 g/dL (3.5-5.0); BILIRUBIN,TOTAL 0.3 mg/dL (0.2-1.0); CREATININE 0.3 mg/dL (0.5-1.5); MAGNESIUM 2.6 mg/dL (1.80-2.40); POTASSIUM 4.4 mmol/L (3.5-5.1); TOTAL PROTEIN, SERUM 4.8 g/dL (6.0-8.3)
[2020-03-27] MEDS: CHLORHEXIDINE GLUCONATE 473 ML MOUTHWASH MM SCH ×4 (09:30→21:00)
[2020-03-27] MEDS: BALSAM PERU/CASTOR OIL 60 GM TUBE TP SCH ×2 (09:30→21:00)
[2020-03-27] MEDS: SOLU-MEDROL 40MG VIAL IVP SCH ×2 (09:30→22:19)
[2020-03-27] MEDS: INSULIN GLARGINE 100 UNITS/ML 10 ML VIAL SQ SCH (09:30)
[2020-03-27] MEDS: FUROSEMIDE 20MG VIAL IV SCH (11:55)
[2020-03-27] MEDS: MIDAZOLAM 100MG-0.9% NS 100ML 100 ML IV SCH (15:13)
[2020-03-28] VITALS (40 sets, daily range): BP systolic 56–186; BP diastolic 30–86
[2020-03-28] MEDS: FUROSEMIDE 20MG VIAL IV SCH ×2 (01:25→12:20)
[2020-03-28] MEDS: INSULIN HUMULIN R 100 UNIT/ML 3ML SQ SCH ×4 (01:27→17:15)
[2020-03-28] MEDS: PROPOFOL 1000 MG/100 ML 100 ML IV SCH ×3 (03:16→17:59)
[2020-03-28] MEDS: MIDAZOLAM 100MG-0.9% NS 100ML 100 ML IV SCH ×2 (04:17→20:49)
[2020-03-28] MEDS: DIAZEPAM 5 MG TABLET GT SCH ×3 (04:18→20:45)
[2020-03-28 05:06] LABS: BASOPHILS % (AUTO) 0.5 % (0.0-5.0); EOSINOPHILS % (AUTO) 17.1 % (0.0-8.0); HEMATOCRIT 26.2 % (42-54); LYMPHOCYTES % (AUTO) 13.3 % (21.0-51.0); MEAN CORPUSCULAR HGB CONC 30.5 g/dL (32.0-36.0); MEAN CORPUSCULAR VOLUME 98.1 fL (79-99); MONOCYTES % (AUTO) 2.8 % (3.0-13.0); NEUTROPHILS % (AUTO) 60.6 % (40.0-77.0); NUCLEATED RED BLOOD CELLS 3.8 % (0.0-0.19); PLATELET COUNT (AUTO) 28 K/uL (130-400); RED BLOOD CELL COUNT(AUTO) 2.67 MIL/uL (4.50-6.20); RED CELL DISTRIBUTION WIDTH 19.6 % (11.0-15.5); WHITE BLOOD COUNT (AUTO) 2.1 K/uL (4.8-10.8)
[2020-03-28 05:36] LABS: ALBUMIN 1.1 g/dL (3.5-5.0); BILIRUBIN,TOTAL 0.4 mg/dL (0.2-1.0); CREATININE 0.3 mg/dL (0.5-1.5); MAGNESIUM 2.5 mg/dL (1.80-2.40); PHOSPHORUS 3.1 mg/dL (2.5-4.9); POTASSIUM 4.1 mmol/L (3.5-5.1); TOTAL PROTEIN, SERUM 4.5 g/dL (6.0-8.3)
[2020-03-28 07:58] LABS: PROTHROMBIN TIME 10.7 SEC (9.6-11.6)
[2020-03-28 07:59] LABS: PARTIAL THROMBOPLASTIN TIME 32.4 SEC (26.3-35.5)
[2020-03-28] MEDS: SOLU-MEDROL 40MG VIAL IVP SCH ×2 (08:27→20:51)
[2020-03-28] MEDS: CHLORHEXIDINE GLUCONATE 473 ML MOUTHWASH MM SCH (08:28)
[2020-03-28] MEDS: INSULIN GLARGINE 100 UNITS/ML 10 ML VIAL SQ SCH (08:30)
[2020-03-28] MEDS: BALSAM PERU/CASTOR OIL 60 GM TUBE TP SCH ×2 (08:30→22:18)
[2020-03-28] MEDS ORDERED: FUROSEMIDE 100MG VIAL IVP STA (14:36)
[2020-03-28] MEDS ORDERED: NOREPINEPHRIN 4MG/NS 250ML 250 ML IV ONE (23:23)
[2020-03-29] MEDS ORDERED: NOREPINEPHRIN 4MG/NS 250ML 250 ML IV SCH (00:15)
== END 2020-03-29 00:11 | disposition expired | DRG 4 ==
LOC: EDH 14:13 → EDHIP 17:21 → 2AH 22:31 → 2BH 02-29 09:00 → 2DH 03-28 18:36
PROVIDERS: ADMIT Internal Medicine; ATTEND Internal Medicine
PROC: XW13325 Transfusion of Convalescent Plasma (Nonautologous) into Peripheral Vein, Percutaneous Approach, New Technology Group 5 (ICD-10-PCS; 2020-02-10)
PROC: 5A0935A Assistance with Respiratory Ventilation, Less than 24 Consecutive Hours, High Flow/Velocity Cannula (ICD-10-PCS; 2020-02-10)
PROC: XW033E5 Introduction of Remdesivir Anti-infective into Peripheral Vein, Percutaneous Approach, New Technology Group 5 (ICD-10-PCS; 2020-02-13)
PROC: 5A0935A Assistance with Respiratory Ventilation, Less than 24 Consecutive Hours, High Flow/Velocity Cannula (ICD-10-PCS; 2020-02-19)
PROC: 5A0935A Assistance with Respiratory Ventilation, Less than 24 Consecutive Hours, High Flow/Velocity Cannula (ICD-10-PCS; 2020-02-20)
PROC: 5A09357 Assistance with Respiratory Ventilation, Less than 24 Consecutive Hours, Continuous Positive Airway Pressure (ICD-10-PCS; 2020-02-20)
PROC: 5A0935A Assistance with Respiratory Ventilation, Less than 24 Consecutive Hours, High Flow/Velocity Cannula (ICD-10-PCS; 2020-02-21)
PROC: 5A0935A Assistance with Respiratory Ventilation, Less than 24 Consecutive Hours, High Flow/Velocity Cannula (ICD-10-PCS; 2020-02-22)
PROC: 5A09557 Assistance with Respiratory Ventilation, Greater than 96 Consecutive Hours, Continuous Positive Airway Pressure (ICD-10-PCS; 2020-02-22)
PROC: 02HV33Z Insertion of Infusion Device into Superior Vena Cava, Percutaneous Approach (ICD-10-PCS; 2020-02-23)
PROC: B548ZZA Ultrasonography of Superior Vena Cava, Guidance (ICD-10-PCS; 2020-02-23)
PROC: 5A0935A Assistance with Respiratory Ventilation, Less than 24 Consecutive Hours, High Flow/Velocity Cannula (ICD-10-PCS; 2020-02-28)
PROC: 5A09357 Assistance with Respiratory Ventilation, Less than 24 Consecutive Hours, Continuous Positive Airway Pressure (ICD-10-PCS; 2020-02-28)
PROC: 5A1955Z Respiratory Ventilation, Greater than 96 Consecutive Hours (ICD-10-PCS; principal; 2020-02-29)
PROC: 0BH17EZ Insertion of Endotracheal Airway into Trachea, Via Natural or Artificial Opening (ICD-10-PCS; 2020-02-29)
PROC: 0DH63UZ Insertion of Feeding Device into Stomach, Percutaneous Approach (ICD-10-PCS; 2020-03-14)
PROC: 0DB68ZX Excision of Stomach, Via Natural or Artificial Opening Endoscopic, Diagnostic (ICD-10-PCS; 2020-03-14)
PROC: 0B110F4 Bypass Trachea to Cutaneous with Tracheostomy Device, Open Approach (ICD-10-PCS; 2020-03-22)
PROC: 5A12012 Performance of Cardiac Output, Single, Manual (ICD-10-PCS; 2020-03-29)
DX: U07.1 COVID-19 (principal); J12.82 Pneumonia due to coronavirus disease 2019; J80 Acute respiratory distress syndrome; E43 Unspecified severe protein-calorie malnutrition; Z99.11 Dependence on respirator [ventilator] status; D61.818 Other pancytopenia; G62.81 Critical illness polyneuropathy; G72.81 Critical illness myopathy; E78.5 Hyperlipidemia, unspecified; T38.0X5A Adverse effect of glucocorticoids and synthetic analogues, initial encounter; R00.1 Bradycardia, unspecified; B37.9 Candidiasis, unspecified; R73.9 Hyperglycemia, unspecified; R13.10 Dysphagia, unspecified; I25.10 Atherosclerotic heart disease of native coronary artery without angina pectoris; K76.0 Fatty (change of) liver, not elsewhere classified; I10 Essential (primary) hypertension; K29.70 Gastritis, unspecified, without bleeding; D73.1 Hypersplenism; F03.90 Unspecified dementia, unspecified severity, without behavioral disturbance, psychotic disturbance, mood disturbance, and anxiety; F17.200 Nicotine dependence, unspecified, uncomplicated; R53.81 Other malaise; R63.0 Anorexia; K74.60 Unspecified cirrhosis of liver; E63.9 Nutritional deficiency, unspecified; E78.00 Pure hypercholesterolemia, unspecified; Z68.25 Body mass index [BMI] 25.0-25.9, adult; Y92.89 Other specified places as the place of occurrence of the external cause; Z79.82 Long term (current) use of aspirin
CPT/HCPCS: 31500; 36415; 36430; 36569; 36600; 43246; 71045; 71275; 80048; 80053; 80061; 80076; 80202; 81001; 82140; 82435; 82550; 82728; 82803; 82947; 82948; 83605; 83615; 83735; 83874; 83880; 84100; 84132; 84145; 84295; 84484; 85014; 85018; 85025; 85027; 85378; 85384; 85610; 85651; 85730; 86140; 86850; 86900; 86901; 86927; 87040; 87071; 87088; 87205; 87426; 92610; 92950; 93005; 93970; 94002; 94003; 94660; 97039; C1894; G0378; J0456; J0690; J0692; J0696; J1100; J1450; J1650; J1815; J1940; J1956; J2250; J2704; J2920; J3010; J3360; J3370; J3480; J3490; J7030; J7050; J7070; J7120; Q0167; Q9967; U0003